=== PATIENT | female | born 1970 | race Caucasian/White ===

== ENCOUNTER 2018-10-07 09:02 | Day surgery (SDC) | payer BC ==
--- NOTE | 2018-10-07 06:52 | History and Physical - Ferro ---
CHIEF COMPLAINT/HISTORY OF CHIEF COMPLAINT: This patient presents with a history of intractable lumbar radiculopathy. Due to the failure of all therapies, a spinal cord stimulator trial was conducted on 09/03/18 with 75-85% pain control. Due to failure of therapies and the success of the trial, the patient presents today for implantation of a permanent system. PAST MEDICAL HISTORY: Chronic obstructive pulmonary disease, hypothyroidism, and cardiac arrhythmia. PAST SURGICAL HISTORY: Shoulder surgery, hysterectomy, and lung surgery. EMPLOYMENT STATUS: She works full-time. MEDICATIONS ON ADMISSION: List to be provided. ALLERGIES: ADHESIVES. FAMILY/PSYCHOSOCIAL HISTORY: Social history - Caffeine. Family history - Coronary artery disease, cancer, and cerebrovascular disease. SYSTEMS REVIEW: The patient is appropriate in no acute distress. The remainder of the systems review is positive for dentures, headaches, breathing difficulties, irregular heartbeat, degenerative arthritis, fibromyalgia, and difficulty sleeping. PHYSICAL EXAMINATION: Height is 5'2", weight is 110. No vital signs. HEENT: Within normal limits. LUNGS: Clear. HEART: Rapid and regular. ABDOMEN: Nontender. MUSCULOSKELETAL: Examination of the musculoskeletal system shows diffuse tenderness throughout the lumbar spine. Range of motion does produce pain mostly into the right leg. There are mild motor and sensory abnormalities to the right leg. Ambulation - No assistive device is utilized. NEUROLOGIC: Cranial nerves are intact. IMPRESSION: LUMBAR RADICULOPATHY, ICD-10 CODE M54.16 AND M54.17. PLAN: The primary pattern is back and leg, trial gave 75-85% pain control, other therapies failed. She is here for a permanent implant based upon the success of the trial and the failure of other therapies. The procedure will be considered outpatient although an overnight stay will be evaluated. JOB NUMBER: [id number] [facility]
[~2018-10-07 09:02] MED LIST: ACETAMINOPHEN 1,000 MG/100 ML BTL IV ONE; CEFAZOLIN 2 Gram 2 GM/50 ML BAG IVPB ONE; FAMOTIDINE 20MG TABLET PO ONE; MECLIZINE 25 MG TABLET PO ONE; METOCLOPRAMIDE 10 MG TABLET PO ONE
[2018-10-07] MEDS ORDERED: BUPIVACAINE 0.5% W/EPI MPF 30 ML VIAL IVP ONE (09:03)
[2018-10-07] MEDS ORDERED: FLUMAZENIL 1MG/10ML VIAL IV ONE (09:03)
[2018-10-07] MEDS ORDERED: PROPOFOL 10 MG/ML VIAL IV ONE (09:03)
[2018-10-07] MEDS ORDERED: FENTANYL PF 100MCG/2ML VIAL IV ONE (09:03)
[2018-10-07] MEDS ORDERED: HYDROCODONE/APAP 7.5/325MG TABLET PO ONE (09:03)
[2018-10-07] MEDS ORDERED: LIDOCAINE 2% MDV (20MG/ML) 20ML VIAL IV ONE (09:03)
[2018-10-07] MEDS ORDERED: EPHEDRINE SULFATE 50 MG/ML ML IV ONE (09:03)
[2018-10-07] MEDS ORDERED: LIDOCAINE 1% W/EPI 1:200,000 MPF 30ML SQ ONE (09:03)
[2018-10-07] MEDS ORDERED: CEFAZOLIN 1G VIAL IM ONE (09:03)
[2018-10-07] MEDS ORDERED: MIDAZOLAM HCL 2MG/2ML VIAL IV ONE (09:03)
--- NOTE | 2018-10-08 15:15 | RADIOLOGY REPORT ---
EXAM: THORACIC SPINE HISTORY: STIMULATOR PLACEMENT. TECHNIQUE: A single portable AP view of the thoracic spine was performed. Comparison: None. FINDINGS: Stimulator lead tips are at the T7 level. IMPRESSION: STIMULATOR LEAD TIPS ARE AT THE T7 LEVEL. JOB NUMBER: [id number] MTDD
--- NOTE | 2018-10-10 19:46 | Operative Note ---
DATE OF SURGERY: 10/07/2018 PREOPERATIVE DIAGNOSIS: LUMBAR RADICULOPATHY, ICD-10 CODE = M54.16 AND M54.17. SURGERY: 1. FLUOROSCOPIC-GUIDED EPIDURAL ACCESS LEFT T12-L1, PLACEMENT OF SPINAL CORD STIMULATOR LEAD 1, A [employer] INFINION 16 WITH 6 ELECTRODES POSITIONED LEFT T6. 2. FLUOROSCOPIC-GUIDED EPIDURAL ACCESS LEFT L1-2, PLACEMENT OF SPINAL CORD STIMULATOR LEAD 2, A [employer] INFINION 16 WITH 6 ELECTRODES POSITIONED RIGHT T6. 3. COMPLEX PROGRAMMING OF LEAD 1 OVER 20 MINUTES FOLLOWED BY COMPLEX PROGRAMMING OF LEAD 2 OVER 20 MINUTES. 4. INCISION, SUBCUTANEOUS DISSECTION, AND ANCHORING OF LEAD 1 AND LEAD 2 TO SUPRASPINOUS FASCIA WITH A [employer] LOCKING ANCHOR. 5. INCISION, SUBCUTANEOUS DISSECTION, AND CREATION OF SUBCUTANEOUS POUCH AT LEFT FLANK FOR PLACEMENT OF GENERATOR IDENTIFIED A [employer] SCIENTIFIC PROGRAMMABLE, RECHARGEABLE WAVEWRITER. 6. TUNNELING BETWEEN POUCHES, PLACEMENT OF EXTERNAL PORTION OF LEAD 1 AND LEAD 2 INTO GENERATOR POUCH, EACH LEAD INTERFACED WITH THE GENERATOR. 7. CLOSURE OF INCISIONS USING STRATAFIX SUTURE, #2-0 FASCIA AND #3-0 SKIN. DERMABOND CLOSURE. 8. COMPLEX RECOVERY ROOM PROGRAMMING INTERNAL GENERATOR HOME USE, TWO STIMULATORS, 20 MINUTES. SURGEON: SHILOH OROSCO D.O. ANESTHESIA: LOCAL SEDATION. ANESTHESIA PROVIDER: KAUSHAL GARVEY CRNA. INDICATIONS: This patient presents with a history of intractable lumbar radiculopathy. Due to the failure of all therapy and the success of a stimulator trial, the patient presents today for implantation of a permanent system. SURGERY: Intravenous line, vital sign monitoring, IV sedation by Anesthesia, patient positioned prone, sterile prep, sterile technique. Imaging for guidance and local for infiltration. The epidural interspace left of the midline at 12-1 and 1-2 were marked and infiltrated. Using standard curved access Epimed needles with [id number], the space was accessed. At 12-1, spinal cord stimulator lead 1, a [employer] Infinion 16 with 6 electrodes was positioned left of midline, upper electrode , T6. With the access at 1-2, same technique, similar needle, spinal cord stimulator lead 2, a [employer] Infinion 16 with 6 electrodes was positioned right at T6. Complex programming of lead 1 over 20 minutes followed by complex programming of lead 2 over 20 minutes resulting in a complete pattern of stimulation across the back and into the leg. Patient indicating we had all the areas of the pain. She was given the option to implant, continue to program, or remove. She opted to implant. Questions were repeated with the same response. She was then re-sedated. The skin above and below the needles was infiltrated, incision made, and subcutaneous dissection was conducted to the supraspinous fascia. The needles were removed and then each lead was anchored to the supraspinous fascia with a [employer] locking anchor and nonabsorbable suture. At the left flank, a site picked by the patient for the generator, skin infiltrated, incision made and subcutaneous dissection was conducted to form a pouch of suitable size and depth for the generator, a [employer] programmable, rechargeable WaveWriter. A tunneling tool was used to extend the leads into the generator pouch and then each lead was interfaced with the generator. Antibiotic irrigation and Bovie for hemostasis. With the generator and the leads in their respective pouches. both incisions were closed using STRATAFIX suture, #2-0 fascia and #3-0 skin. Dermabond closure approximating the edges of both wounds. The patient was transported to the Recovery Room stable. No side effects from the procedure or the sedation. When fully awake and alert, complex programming was then performed of the generator in the Recovery Room, over 20 minutes, reestablishing stimulation and pain control to all the appropriate areas. She was instructed on the use of the system, provided with information on error messaging and then prepared for discharge. DISCHARGE INSTRUCTIONS: 1. The Dermabond will allow showering but she cannot sit in water, no tubs. 2. She will start the antibiotic, Levaquin, 500 mg once a day for 14 days. 3. The will be called by the office in the next 24 to 48 hours to set up a time in 7 to 10 days for us to evaluate the sites. Until then, she is to keep her activities low. 4. She has work issues. She will need restrictions once she returns to work. We have discussed keeping her off work for the next 2 to 3 weeks and then returning with restrictions. She will advise us. All other instructions provided , numbers to contact if problems given. She was then discharged. cc: Primary JOB NUMBER: [id number] [facility]
== END 2018-10-07 13:10 | disposition home or self-care (01) ==
LOC: SUR 09:02
PROVIDERS: ATTEND Pain Medicine Interventional Pain Medicine
DX: M54.16 Radiculopathy, lumbar region (principal); M54.17 Radiculopathy, lumbosacral region; M06.9 Rheumatoid arthritis, unspecified; G62.9 Polyneuropathy, unspecified; E05.00 Thyrotoxicosis with diffuse goiter without thyrotoxic crisis or storm
CPT/HCPCS: 63650; 63685; 01936; 95972; 72020; J3010; J0690; C1820; C1883

== ENCOUNTER 2018-12-14 12:09 | Day surgery (SDC) | payer BC ==
[2018-12-14] MEDS ORDERED: PROPOFOL 10 MG/ML VIAL IV ONE (12:10)
[2018-12-14] MEDS ORDERED: LIDOCAINE 2% MDV (20MG/ML) 20ML VIAL IV ONE (12:10)
--- NOTE | 2018-12-14 15:11 | Operative Note ---
DATE OF SURGERY: 12/14/2018 OPERATION: COLONOSCOPY to the cecum with cold snare polypectomy x4. INDICATION: Colorectal cancer screening. The patient denies any lower GI concerns. ANESTHESIA: Intravenous sedation was administered by the department of anesthesiology and included Diprivan titrated to effect. PROCEDURE: Following informed consent from this alert individual including a discussion of the risks and benefits of the procedure and an opportunity for the patient to ask questions, the patient was in the left lateral decubitus position. A digital rectal examination was performed. No abnormalities were noted. Following this, the Olympus [id number] video colonoscope was inserted into the rectum without resistance. The rectal mucosa had a normal appearance with normal folds and distensibility. The colonoscope was advanced up through the bowel to the level of the cecum without much difficulty. Sigmoid diverticulosis was apparent. There were also 2 small polyp noted initially in the sigmoid colon which were traversed, to be removed on withdrawal. The cecum was identified by noting the appendiceal orifice and ileocecal valve. The colon preparation overall was good. From the base of the cecum, the colonoscope was slowly withdrawn. There were 2 ascending colon polyps measuring 5 mm in size. Each was removed with cold snare polypectomy and the polyp was suctioned through the colonoscope into a collection trap. Again, in the sigmoid colon there were scattered diverticula noted. There were also 2 polyps noted previously, one measuring 5-6 mm in size and the smaller one perhaps 3-4 mm in size. Each was removed with cold snare polypectomy and the polyps were suctioned into a collection trap. The endoscope was then withdrawn back into the rectum where retroflexion accomplished following air insufflation failed to demonstrate any additional changes. The instrument was straightened and removed. The patient tolerated the procedure well and was returned to the recovery area in stable condition. IMPRESSION: 1. Two 5 mm ascending colon polyps removed with cold snare polypectomy. 2. Two sigmoid colon polyps measuring 3-5 mm in size removed with cold snare polypectomy. 3. Sigmoid diverticulosis. RECOMMENDATIONS: The patient was advised she should receive a copy of her pathology report at home in the next 2-3 weeks. If not, she was asked to call my office to review the results of testing today. Further recommendations will be forthcoming pending those results. Followup will also be with Dr. An. As always, thank you for allowing me to participate in the care of your patient. CC: Lele An MD [facility]
== END 2018-12-14 14:45 | disposition home or self-care (01) ==
LOC: HOP 12:09
PROVIDERS: ATTEND Internal Medicine Gastroenterology
DX: Z12.11 Encounter for screening for malignant neoplasm of colon (principal); D12.2 Benign neoplasm of ascending colon; D12.5 Benign neoplasm of sigmoid colon; K57.30 Diverticulosis of large intestine without perforation or abscess without bleeding; G62.9 Polyneuropathy, unspecified; D70.9 Neutropenia, unspecified; M06.9 Rheumatoid arthritis, unspecified; J44.9 Chronic obstructive pulmonary disease, unspecified; J45.909 Unspecified asthma, uncomplicated
CPT/HCPCS: 76700

== ENCOUNTER 2019-04-12 23:00 | Emergency (ER) | payer BC ==
[2019-04-12] MEDS ORDERED: 0.9 % SODIUM CHLORIDE 1,000 ML BAG IV ONE (23:12)
[2019-04-12] MEDS ORDERED: LORAZEPAM 2 MG/ML VIAL IV ONE (23:12)
[2019-04-12] MEDS ORDERED: ONDANSETRON HCL IV 4 MG/2 ML VIAL IVP ONE (23:14)
--- NOTE | 2019-04-12 23:19 | Emergency Department Record ---
History of Present Illness - General Stated Complaint: muscle weakness and spasms Time Seen by Provider: 04/12/19 23:03 Source: Patient Mode of Arrival: Ambulatory Limitations: No limitations - History of Present Illness Initial comments: 48 yo female presents from work at [employer]. She developed weakness all over her body. She felt like it was difficult to climb steps. She has muscle aches all over her body. Her hands and feet began cramping severely. No headache. No syncope. She reports she felt like she "was drunk" but she does not drink. She hurts all over her body including her chest. Her pain there is similar to the pain all over her body. She has nausea and reports she vomited. She ate but it did not help the symptoms. Her hands and right foot are currently cramping during the interview. She has COPD but states today has been a good day. No cough or shortness of breath. NO swelling. No rash. NO fever. No other recent changes in her health. Dr An is her doctor. -: Hour(s) Location: Upper extremity, Lower extremity, Abdomen, Back, Chest Radiation: Other (All over her body) Quality: Other (cramps and aches) Consistency: Constant Improves with: None Worsens with: Movement, Other (cramps occur with walking) Associated Symptoms: Denies other symptoms Treatments Prior to Arrival: None - Scott Coma Scale Eye Response: (4) Open spontaneously Motor Response: (6) Obeys commands Verbal Response: (5) Oriented Scott Total: 15 - Related Data Home Medications Medication Instructions Recorded Confirmed Last Taken Hydrocodone/Acetaminophen 1 tab PO Q6H PRN 04/12/19 04/12/19 Unknown [Hydrocodone/Acetaminophen 7.5mg/325mg] Allergies Allergy/AdvReac Type Severity Reaction Status Date / Time adhesive tape Allergy Intermediate BLISTERS Verified 04/13/19 05:48 codeine AdvReac Intermediate VOMITING Verified 04/13/19 05:48 Travel Screening - Travel/Exposure Within Last 30 Days Have you traveled within the last 30 days?: No Review of Systems Constitutional: Reports: Weakness. Denies: Chills, Fever, Malaise, Night sweats Eyes: Denies: Eye discharge, Eye pain, Photophobia, Vision change ENT: Denies: Congestion, Dental pain, Ear pain, Epistaxis, Throat pain Respiratory: Denies: Cough, Dyspnea, Hemoptysis, Stridor, Wheezes Cardiovascular: Reports: Chest pain. Denies: Arrhythmia, Dyspnea on exertion, Edema, Palpitations, Syncope Endocrine: Reports: Fatigue. Denies: Polydipsia, Polyuria Gastrointestinal: Reports: Nausea, Vomiting. Denies: Abdominal pain, Constipation, Diarrhea, Hematemesis, Hematochezia, Melena Genitourinary: Denies: Dysuria, Urgency Musculoskeletal: Reports: Myalgia. Denies: Arthralgia, Back pain, Joint swelling, Neck pain Skin: Denies: Bruising, Change in color, Rash Neurological: Denies: Abnormal gait, Confusion, Headache, Numbness, Paresthesias, Seizure, Tingling, Tremors, Vertigo, Weakness Psychiatric: Denies: Anxiety Hematological/Lymphatic: Denies: Easy bleeding, Easy bruising Past Medical History - SOCIAL HISTORY Smoking Status: Current some day smoker - RESPIRATORY Hx Respiratory Disorders: Yes Hx COPD: Yes (USES INHALER DAILY) Comment:: spontaneous pneumo on left/wedge rsxn left benign area 2014 - CARDIOVASCULAR Hx Cardio Disorders: Yes Hx Chest Pain: No (DENIES) Hx Hypotension: Yes Hx Palpitations: Yes (due to graves disease) - NEURO Hx Neuro Disorders: Yes Hx TIA: Yes (possibly yrs ago) - GI Hx GI Disorders: No - Hx Genitourinary Disorders: No Comment:: s/p hyst - ENDOCRINE Hx Endocrine Disorders: Yes Hx Thyroid Disease: Yes (graves disease) - MUSCULOSKELETAL Hx Musculoskeletal Disorders: Yes Hx Arthritis: Yes (RA) Hx Fibromyalgia: Yes - PSYCH Hx Psych Problems: Yes Hx Anxiety: Yes Hx Depression: Yes - HEMATOLOGY/ONCOLOGY Hx Hematology/Oncology Disorders: Yes Hx Anemia: Yes Hx Blood Disorders: Yes (neutropenia nuepogen wkly) Comment:: bone marrow test 2015, neutropenic unknown etiology Family Medical History Hx Cancer: Father, Mother, Grandparents Hx Heart Disease: Father, Mother, Grandparents Hx Stroke: Grandparents Physical Exam - General General Appearance: Alert, Oriented x3, Cooperative, No acute distress, Other (Currently holding her cramping foot) Limitations: No limitations - Head Head exam: Atraumatic, Normocephalic, Normal inspection - Eye Eye exam: Normal appearance, PERRL. negative: Conjunctival injection, Scleral icterus - ENT ENT exam: Normal exam, Mucous membranes moist Ear exam: Normal external inspection Nasal Exam: Normal inspection Mouth exam: Normal external inspection Teeth exam: Normal inspection Throat exam: Normal inspection - Neck Neck exam: Normal inspection, Full ROM. negative: Lymphadenopathy, Meningismus, Tenderness - Respiratory Respiratory exam: Normal lung sounds bilaterally, Chest wall tenderness (tender on palpation). negative: Accessory muscle use, Decreased breath sounds, Prolonged expiratory, Respiratory distress, Rhonchi, Stridor, Wheezes - Cardiovascular Cardiovascular Exam: Regular rate, Normal rhythm, Normal heart sounds. negative: Diastolic murmur, Irregular rhythm, Systolic murmur, Tachycardia Peripheral Pulses: 2+: Radial (R), Radial (L) - GI/Abdominal GI/Abdominal exam: Soft. negative: Distended, Guarding, Tenderness - Rectal Rectal exam: Deferred - exam: Deferred - Extremities Extremities exam: Normal inspection, Full ROM, Tenderness (diffuse muscle tenderness especially in her feet). negative: Normal capillary refill - Back Back exam: Reports: CVA tenderness (R), CVA tenderness (L), Full ROM - Neurological Neurological exam: Alert, Normal gait, Oriented X3. negative: Altered - Psychiatric Psychiatric exam: Anxious (anxious holding her cramping right foot) - Skin Skin exam: Dry, Intact, Normal color, Warm Course Vital Signs 04/12/19 23:03 Temperature 98.6 F Pulse Rate [ 105 H Pulse Ox Probe] Respiratory 24 Rate Blood Pressure 124/91 [Left Arm] Pulse Ox 97 - Reevaluation(s) Reevaluation #1: The patient was seen and examined. She is afebrile, mildly anxious due to right foot cramping at this time Atypical symptoms of pain all over with hand and feet cramps No signs of infection. No significant physical examination findings except tender of muscles diffusely 04/12/19 23:33 EKG #1: 23:21 Rate: 94 Rhythm: sinus [place]: normal Intervals: normal ST segments: no acute changes Prior: 04/13/19 00:00 The CBC is normal The CMP is normal The UDS positive for opiates CK is normal Trop is normal 04/13/19 00:11 The patient is doing much better. Cramps in foot seem better. She is relaxed and resting. 04/13/19 00:31 After the Ativan the patient reports her body finally has relaxed. She is a little sleepy and BP lower so will continue to monitor and finish the IVF. She has no cramps and her body pain is gone. No other complaints currently. 04/13/19 02:07 The patient remains relaxed sleeping. Easily awakens with no complaints. Plan for 2nd set of cardiac enzymes at 4 hours. 04/13/19 03:51 The patient was up to the restroom. Steady. No cramps. BP 115/55. No dizziness or lightheadedness. 04/13/19 04:24 The repeat Troponin is normal. The symptoms are very atypical for ACS. 04/13/19 04:28 The patient was informed of the repeat normal troponin No return of the muscle cramps while waiting. 04/13/19 05:57 The patient woke up, up to the restroom and still feels good. BP 112/76. She has not had any return or symptoms. It has been over 6 hours since medications and she feels all effects are gone. She is alert, conversational, at baseline and ready for DC. We discussed a short steroid taper of 20,10,5 and close follow up with her PCP or return if any symptoms return Medical Decision Making - Lab Data Result diagrams: 04/12/19 23:24 04/12/19 23:24 Disposition Disposition: Discharge Clinical Impression: Myalgia, Weakness Disposition: Home, Self-Care Condition: (1) Good Instructions: Weakness (ED), Musculoskeletal Pain (ED) Additional Instructions: Call your doctor for the next available follow up appointment Review this ER visit and the tests performed with your family doctor Return to the ER for a recheck if worse, any new concerns or questions Forms: Patient Portal Access Time of Disposition: 04:26 Quality - Quality Measures Quality Measures: N/A - Blood Pressure Screening Does Patient Have Any of the Following: No Blood Pressure Classification: Normal BP Reading Systolic Measurement: 112 Diastolic Measurement: 76 Screening for High Blood Pressure: < Normal BP, F/U Not Required > [[id number]]
[2019-04-12 23:32] LABS: ABSOLUTE NEUTROPHIL COUNT 4.88; BASO % 0.3 % (0-6); GRAN % 65.2 % (47-80); HEMATOCRIT 43.7 % (35.0-47.0); HEMOGLOBIN 14.8 gm/dl (11.6-16.0); MEAN CELL VOLUME 97.1 fl (81-97); MEAN CORPUSCULAR HEMOGLOBIN 32.9 pg (27-33); MEAN CORPUSCULAR HGB CONC 33.9 g/dl (32-36); MEAN PLATELET VOLUME 9.8 fl (7.4-10.4); MONO % 13.5 % (0-9); PLATELET COUNT 198 K/uL (130-400); RED CELL DISTRIBUTION WIDTH 13.5 % (11.5-14.5); WHITE BLOOD COUNT W/O DIFF 7.5 K/uL (4.2-12.2)
[2019-04-12 23:43] LABS: BILIRUBIN,TOTAL < 0.20 mg/dL (0.2-1.0); BLOOD UREA NITROGEN 14 mg/dL (6-20); EST GLOMERULAR FILTRATION RATE > 60 mL/min; TOTAL PROTEIN 6.6 g/dL (6.6-8.7)
[2019-04-12 23:44] LABS: AMPHETAMINE SCREEN URINE NOT DETECTED; BARBITURATE SCREEN URINE NOT DETECTED; BENZODIAZEPINE SCREEN URINE NOT DETECTED; COCAINE SCREEN URINE NOT DETECTED; METHADONE SCREEN URINE NOT DETECTED; METHAMPHETAMINE SCREEN NOT DETECTED; OPIATE SCREEN URINE DETECTED; OXYCODONE SCREEN URINE NOT DETECTED; PHENCYCLIDINE SCREEN URINE NOT DETECTED; PROPOXYPHENE SCREEN URINE NOT DETECTED; THC SCREEN URINE NOT DETECTED; TRICYCLIC ANTIDEPRESSANT SCRN NOT DETECTED
[2019-04-12 23:45] LABS: GLUCOSE,RANDOM 112 mg/dL (74-109)
[2019-04-12 23:48] LABS: ALB/GLOB RATIO 1.9 (1.1-1.8); ALBUMIN 4.3 g/dL (4.0-5.0); ALKALINE PHOSPHATASE 84 U/L (35-104); ALT/SGPT 5 U/L (<33); AST/SGOT 14 U/L (10.0-35.0); CREATINE PHOSPHOKINASE 32 U/L (26-192)
[2019-04-13] LABS: THYROID STIMULATING HORMONE 1.26 uIU/mL (0.270-4.20)
[2019-04-13] MEDS ORDERED: 0.9 % SODIUM CHLORIDE 1000ML 1,000 ML IV ONE (01:10)
[2019-04-13] MEDS ORDERED: DEXAMETHASONE 4 MG/ML 1ML VIAL IVP ONE (03:13)
== END 2019-04-13 06:05 | disposition home or self-care (01) ==
LOC: ER 23:00
DX: M79.10 Myalgia, unspecified site (principal); E07.9 Disorder of thyroid, unspecified; M06.9 Rheumatoid arthritis, unspecified; M79.7 Fibromyalgia
CPT/HCPCS: 80053; 80305; 80320; 82550; 84443; 84484; 85025; 93005; 93010; 96361; 96374; 96375; 99284; J2405; J7030

== ENCOUNTER 2019-04-14 06:45 | Day surgery (SDC) | payer BC ==
[~2019-04-14 06:45] MED LIST changes: -ACETAMINOPHEN 1,000 MG/100 ML BTL IV ONE; +ACETAMINOPHEN 1,000 MG/100 ML BTL IVPB ONE
[2019-04-14] MEDS ORDERED: LIDOCAINE 2% MDV (20MG/ML) 20ML VIAL IV ONE (06:46)
[2019-04-14] MEDS ORDERED: FENTANYL PF 100MCG/2ML VIAL IV ONE (06:46)
[2019-04-14] MEDS ORDERED: PROPOFOL 10 MG/ML VIAL IV ONE (06:46)
[2019-04-14] MEDS ORDERED: MIDAZOLAM HCL 2MG/2ML VIAL IV ONE (06:46)
--- NOTE | 2019-04-14 06:51 | History and Physical - Ferro ---
CHIEF COMPLAINT/HISTORY OF CHIEF COMPLAINT: This patient who had a spinal cord stimulator implant done on 10/07/18 appeared to be doing quite well although over time she began developing a significant pain pattern at the mid back insertion site. Examination of the area at first showed a patient who is somewhat thin, body weight predicted and indicated at approximately 105 pounds. Although the incision for the midline placement of the spinal cord stimulator leads times two were intact the strain relief which is an appropriate measure to help prevent the lead from being pulled during activities was quite prominent. The anchor for the two leads were also both quite prominent. It was obvious by palpation that the area is quite tender. Although multiple efforts were attempted at a conservative level to desensitize the area we were unsuccessful. At that point and after careful evaluation, it was decided that there were two options, one was to remove the system. The patient felt adversely to this since the device continued to be maintaining adequate and significant pain relief. The other was to revise the system. We suggested that we could remove the two leads, replace with shorter leads which would remove the need for the multiple coils at the mid back as well as at the posterior gluteal margin which was also tender. We would remove the leads and replace the anchors with locking anchors which are quite large and cumbersome and simply anchor the two leads through suture. The attempt would be to reduce the bulk and the size at the incisional and placement site. She preferred the second option to revise, remove and replace than complete removal. PAST MEDICAL HISTORY: Chronic obstructive pulmonary disease, hypothyroidism, and cardiac arrhythmia. PAST SURGICAL HISTORY: Shoulder surgery, hysterectomy, and pulmonary surgery. EMPLOYMENT STATUS: Works line server. MEDICATIONS ON ADMISSION: List to be provided. ALLERGIES: ADHESIVES. FAMILY/PSYCHOSOCIAL HISTORY: Social history - Caffeine. Family history - Coronary artery disease, cancer, and cerebrovascular disease. SYSTEMS REVIEW: The patient is appropriate in no acute distress. The remainder of the systems review is positive for dentures, headaches, breathing difficulties, irregular heartbeat, degenerative arthritis, and fibromyalgia. PHYSICAL EXAMINATION: Height is 5'2", weight is 105. No vital signs. HEENT: Within normal limits. LUNGS: Clear. HEART: Rapid and regular. ABDOMEN: Nontender. MUSCULOSKELETAL: Examination of the musculoskeletal system shows the midline incisional site as per above. Generator pouch is at the left posterior gluteal margin - flank is also identified and tender. There are no breakdowns at the incisional sites. Lower extremity functionality intact. The primary pain pattern lower extremity confirmed. NEUROLOGIC: Cranial nerves are intact. IMPRESSION: 1. LUMBAR RADICULOPATHY, ICD-10 CODE M54.16 AND M54.17 2. IMPLANTED SPINAL CORD STIMULATOR AND INTERNAL GENERATOR. PLAN: As per the previous discussion we will remove and replace the system. We will consider this outpatient although an overnight stay will be evaluated. JOB NUMBER: [id number] MTDD
[2019-04-14] MEDS ORDERED: RINGERS SOLUTION,LACTATED 1,000 ML IV ONE (07:46)
[2019-04-14] MEDS ORDERED: BUPIVACAINE 0.5% W/EPI MPF 30 ML VIAL SQ ONE (10:48)
[2019-04-14] MEDS ORDERED: LIDOCAINE 1% W/EPI 1:100,000 MDV 20 ML VIAL SQ ONE (10:48)
[2019-04-14] MEDS ORDERED: HYDROMORPHONE HCL 2 MG/ML VIAL IM PRN ×2 (11:57→13:00)
[2019-04-14] MEDS ORDERED: HYDROCODONE/APAP 7.5/325MG TABLET PO PRN ×3 (11:57→13:00)
[2019-04-14] MEDS ORDERED: OXYCODONE/APAP 10MG-325MG TABLET PO PRN ×4 (11:57→13:00)
[2019-04-14] MEDS ORDERED: ACETAMINOPHEN 325 MG TAB PO PRN ×4 (11:57→13:00)
[2019-04-14] MEDS ORDERED: CEFAZOLIN 2 Gram 2 GM/50 ML BAG IVPB SCH (12:00)
[2019-04-14] MEDS ORDERED: ALBUTEROL HFA 8 GM INHALER INH PRN (12:54)
[2019-04-14] MEDS ORDERED: TEMAZEPAM 15 MG CAPSULE PO PRN ×2 (13:00)
[2019-04-14] MEDS ORDERED: DIPHENHYDRAMINE HCL 25 MG CAPSULE PO PRN ×2 (13:00)
[2019-04-14] MEDS ORDERED: AL HYDROX/MAG HYDROX 30ML UD PO PRN (13:00)
[2019-04-14] MEDS ORDERED: SENNOSIDES/DOCUSATE SODIUM UD CAPSULE PO PRN ×2 (13:00)
[2019-04-14] MEDS ORDERED: DIPHENHYDRAMINE HCL 50 MG/ML VIAL IVP PRN ×2 (13:00)
[2019-04-14] MEDS ORDERED: METOCLOPRAMIDE HCL 10 MG/2 ML VIAL IVP PRN (13:00)
[2019-04-14] MEDS ORDERED: METOCLOPRAMIDE 10 MG TABLET PO PRN (13:00)
[2019-04-14] MEDS: HYDROCODONE/APAP 7.5/325MG TABLET PO PRN ×3 (13:47→22:22)
[2019-04-14] MEDS: HYDROMORPHONE HCL 2 MG/ML VIAL IM PRN ×2 (15:49→20:12)
[2019-04-14] MEDS: PREGABALIN (LYRICA) 100MG CAPSULE PO SCH ×2 (16:56→21:24)
[2019-04-14] MEDS: CEFAZOLIN 2 Gram 2 GM/50 ML BAG IVPB SCH (16:58)
[2019-04-14] MEDS ORDERED: 0.9 % SODIUM CHLORIDE 10ML SYR IVP SCH (22:00)
[2019-04-15] MEDS: HYDROMORPHONE HCL 2 MG/ML VIAL IM PRN ×2 (00:22→05:27)
[2019-04-15] MEDS: HYDROCODONE/APAP 7.5/325MG TABLET PO PRN ×2 (02:04→07:50)
[2019-04-15] MEDS: CEFAZOLIN 2 Gram 2 GM/50 ML BAG IVPB SCH ×2 (02:06→08:55)
--- NOTE | 2019-04-15 10:33 | RADIOLOGY REPORT ---
EXAM: THORACOLUMBAR SPINE, SINGLE VIEW HISTORY: SPINAL CORD STIMULATOR REVISION. CHECK LEAD PLACEMENT. TECHNIQUE: A single view of the thoracolumbar spine was obtained. Comparison: 10/07/18. FINDINGS: Spinal cord stimulator leads project over the T7 level. Generator device partially visualized within the left lower quadrant. Cholecystectomy clips are seen. IMPRESSION: SPINAL CORD STIMULATOR LEADS ABOVE. JOB NUMBER: [id number] MTDD
--- NOTE | 2019-04-16 10:40 | Operative Note ---
DATE OF SURGERY: 04/14/2019 PREOPERATIVE DIAGNOSES: 1. Lumbar radiculopathy, ICD10 code M54.16 and M54.17. 2. Spinal cord stimulator internal generator painful, nonfunctional. OPERATION: 1. Fluoroscopic-guided incision, subcutaneous dissection, and removal of 2 implanted spinal cord stimulators. 2. Incision, subcutaneous dissection, and removal of internal pulse generator left posterior gluteal margin. 3. Fluoroscopic-guided epidural access T12-L1, placement of spinal cord stimulator lead 1, a [employer] Infinion 16, 6 electrodes left T7. 4. Fluoroscopic-guided epidural access left L1-2, placement of spinal cord stimulator lead 2, a [employer] Infinion 16, 6 electrodes positioned right T7. 5. Revision of subcutaneous pouch left posterior gluteal margin for placement of new generator, [employer] programmable rechargeable WaveWriter. 6. Tunneling between midline pouch and left generator pouch. Placement of each lead in generator pouch, each lead interfaced with generator. 7. Placement of generator into pouch securing to posterior fascia after revision to extend generator inferior 1/2 generator width securing to posterior fascia with nonabsorbable suture. 8. Placement of leads into pouch. Closure of both incisions using Stratafix suture 2-0 fascia, 3-0 skin, and Dermabond closure. A complex recovery room programming internal generator recovery room 20 minutes. SURGEON: Kevon Peck, ANESTHESIA: Local with sedation. ANESTHESIA PROVIDER: Shirley Epps INDICATION: This patient with a history of intractable lumbar radiculopathy has a 2-spinal cord stimulator internal generator system by [employer]. Although stimulation patterns appear to be doing quite well, the patient's body weight estimated at 100-105 pounds with very little subcutaneous tissue began having pain at the insertion site for the 2 leads midline as well as the left generator pouch posterior gluteal margin. Examination in the office setting showed the 2-lead strained relief loop and the anchors, which were a locking anchor used to secure the leads down, were protruding appreciably causing redness and irritation of the skin as well as obvious pain every time the patient sat down and leaned against a firm surface. Attempts to desensitize were unsuccessful. At that point, she was given the option to remove or replace. The idea or the concept of replacing would be to replace the leads, which are standard legs, with a shorter length and not use standard anchors but rather suture to secure the leads down. The generator pouch would be moved inferiorly approximately 1/2 generator length moving it away from the beltline. PROCEDURE: Intravenous line, vital sign monitoring, IV sedation. Prepped and draped with sterile technique. Under imaging, the incision for the leads was infiltrated, incision made, subcutaneous dissection was conducted to the anchors. The anchor and the suture removed intact. The leads were removed intact. Two separate standard epidural needles with loss of resistance, one at 12-1 and the other at 1-2 were used to gain entry into the epidural space. At 12-1, spinal cord stimulator lead 1, a [employer] Infinion 16, 6 electrodes was advanced and positioned left at T7. The access at 1-2, spinal cord stimulator lead 2, [employer] Infinion 16, 6 electrodes was positioned right at T7. Complex programming of lead 1 over 20 minutes followed by complex programming of lead 2 over 20 minutes resulted in complete pattern stimulation across the back and into the legs. Patient indicating we had all the areas. She was given the option to implant and continue to program or remove. She opted to implant. The question was repeated with the same response. She was then re-sedated. The needles were removed and then each of the 2 leads was anchored to the supraspinous fascia using Ethibond suture. No anchor, only suture at 3 points each lead. The left posterior generator pouch was then deepened, widened, and extended inferiorly approximately 1/2 to 1 generator width taking the pouch down below the beltline. Antibiotic irrigation and Bovie for hemostasis. A tunneling tool was used to carry the leads into the generator pouch, and then each lead was interfaced with a new [employer] programmable, rechargeable generator. The generator was placed into the pouch, secured to the fascia keeping it down lower in position with an Ethibond suture. Both the incisions were then closed using Stratafix suture, 2-0 fascia, and 3-0 skin. She was transported to recovery room stable. She was monitored and then prepared for discharge. DISCHARGE INSTRUCTIONS: 1. The sites will remain clean and dry. No showering or bathing in any way that would disrupt dressings. She can shower but not sit in water. 2. Standard medications resumed including the antibiotic Levaquin 500 mg once a day for 14 days. 3. The patient will be seen in the office in the next 2-3 days. She is requesting to return to work with restrictions. We will evaluate the sites and ensure the integrity of the Dermabond dressing. She will be returned to work with restrictions limiting bend, lift, push, pull. No prolonged sitting, no prolonged standing. She has already arranged this with her employer. FRANCISCO
== END 2019-04-15 09:45 | disposition home or self-care (01) ==
LOC: SUR 06:45 → MEDSURG 11:55 → SUR 04-15 09:45
PROVIDERS: ATTEND Pain Medicine Interventional Pain Medicine
DX: M54.16 Radiculopathy, lumbar region (principal); M54.17 Radiculopathy, lumbosacral region; T85.840A Pain due to nervous system prosthetic devices, implants and grafts, initial encounter; T85.192D Other mechanical complication of implanted electronic neurostimulator of spinal cord electrode (lead), subsequent encounter; D70.9 Neutropenia, unspecified; M06.9 Rheumatoid arthritis, unspecified; J44.9 Chronic obstructive pulmonary disease, unspecified; E05.00 Thyrotoxicosis with diffuse goiter without thyrotoxic crisis or storm; Z90.2 Acquired absence of lung [part of]
CPT/HCPCS: 63650; 63685; 01936; 95972; 72020; J3010; J1170 ×2; J0690 ×2; C1820; J7120

== ENCOUNTER 2019-07-30 11:45 | Inpatient (IN) | payer BC ==
[2019-07-30 12:32] LABS: HEMATOCRIT 44.1 % (35.0-47.0); HEMOGLOBIN 14.2 gm/dl (11.6-16.0); MEAN CELL VOLUME 97.8 fl (81-97); MEAN CORPUSCULAR HEMOGLOBIN 31.5 pg (27-33); MEAN CORPUSCULAR HGB CONC 32.2 g/dl (32-36); MEAN PLATELET VOLUME 9.7 fl (7.4-10.4); PLATELET COUNT 183 K/uL (130-400); RED BLOOD COUNT 4.51 M/uL (3.80-5.40); RED CELL DISTRIBUTION WIDTH 14.4 % (11.5-14.5); WHITE BLOOD COUNT W/O DIFF 2.7 K/uL (4.2-12.2)
[2019-07-30] MEDS ORDERED: METHYLPREDNISOLONE PF 125MG/VIAL IVP ONE (12:39)
[2019-07-30] MEDS ORDERED: IPRATROPIUM/ALBUTEROL (0.5MG/3MG) NEB INH ONE (12:39)
[2019-07-30 12:47] LABS: BILIRUBIN,TOTAL < 0.20 mg/dL (0.2-1.0); BLOOD UREA NITROGEN 14 mg/dL (6-20); CREATININE 0.7 mg/dL (0.5-0.9); EST GLOMERULAR FILTRATION RATE > 60 mL/min; TOTAL PROTEIN 7.1 g/dL (6.6-8.7)
[2019-07-30 12:49] LABS: GLUCOSE,RANDOM 178 mg/dL (74-109)
[2019-07-30 12:52] LABS: ALB/GLOB RATIO 1.2 (1.1-1.8); ALBUMIN 3.9 g/dL (4.0-5.0); ALKALINE PHOSPHATASE 108 U/L (35-104); ALT/SGPT 8 U/L (<33); AST/SGOT 16 U/L (10.0-35.0)
[2019-07-30] MEDS ORDERED: LORAZEPAM 2 MG/ML VIAL IV ONE (13:06)
--- NOTE | 2019-07-30 13:59 | RADIOLOGY REPORT ---
EXAMINATION: Two View Chest Radiographs EXAM DATE: 07/30/2019 1:37 PM TECHNIQUE: PA and lateral views. 3 views. INDICATION: sob COMPARISON: 04/14/2019 ENCOUNTER: Not applicable FINDINGS: The lungs remain hyperinflated/hyperlucent consistent with underlying COPD/pulmonary emphysema. The c ardiovascular pattern appears stable. There is stable scarring/fibrosis. No effusion, pneumothorax or acute pulmonary process is seen. Nodular opacities seen projected over the anterior end of the right sixth and between the anterior ends of the left fifth and sixth ribs are consistent with nipple shad ows. IMPRESSION: COPD. Stable scarring/fibrosis. No acute findings. No significant change from 04/14/2019. Dictated by: Pieter Sandoval MD on 07/30/2019 1:55 PM. .
--- NOTE | 2019-07-30 14:03 | CT SCAN REPORT ---
EXAMINATION: CT Head without IV Contrast EXAM DATE: 07/30/2019 1:37 PM TECHNIQUE: Standard protocol CT images of the head were obtained without intravenous contrast. Elliott l and sagittal reconstructed images were created. INDICATION: weakness COMPARISON: None HAND DOMINANCE: Unknown. ENCOUNTER: Not applicable FINDINGS: 1. There is no intracranial mass, midline shift, extraaxial fluid collection or hemorrhage. 2. The ventricles, sulci and cisterns are normal. 3. There are no suspicious area of altered attenuation. 4. There is no fracture. 5. Moderate mucosal thickening of the right maxillary sinus, right sphenoid sinus, and posterior rig ht ethmoid air cell with some secretions which can be seen with the clinical diagnosis of acute sinus itis. The paranasal sinuses are clear. IMPRESSION: 1. No evidence for acute intracranial abnormality. 2. Right-sided paranasal sinus disease. Dictated by: Cosme Monsalve MD on 07/30/2019 1:59 PM. .
--- NOTE | 2019-07-30 14:26 | Emergency Department Record ---
History of Present Illness - General Chief Complaint: Altered Mental Status Stated Complaint: loss of motor function Time Seen by Provider: 07/30/19 11:57 Source: Patient, Family Mode of Arrival: Ambulatory Limitations: Altered mental status - History of Present Illness Initial Comments: pt was brought in for productive cough, she states she thinks she has pneumonia. she also c/o shakiness, weakness, difficulty walking. she has felt like this since yesterday Complaint: Altered mental status, Confusion, Weakness Onset/Timin -: Days(s) Severity: Moderate Consistency: Constant, Intermittent Context: COPD Associated Symptoms: Cough, Difficulty walking, Weakness - Scott Coma Scale Eye Response: (4) Open spontaneously Motor Response: (6) Obeys commands Verbal Response: (5) Oriented [place] Total: 15 - Symptoms of Stroke Onset of Symptoms Date: 07/29/19 Symptoms of stroke: Dizziness, Muscle Weakness - Related Data Allergies Allergy/AdvReac Type Severity Reaction Status Date / Time adhesive tape Allergy Intermediate BLISTERS Verified 07/30/19 11:59 codeine AdvReac Intermediate VOMITING Verified 07/30/19 11:59 Travel Screening - Travel/Exposure Within Last 30 Days Have you traveled within the last 30 days?: No - Travel/Exposure Within Last Year Have you traveled outside the [place] in the last year?: No - Additonal Travel Details Have you been exposed to anyone with a communicable illness?: No - Travel Symptoms Symptom Screening: None Review of Systems Reviewed: No additional complaints except as noted below Constitutional: Reports: As per HPI. Denies: Chills, Fever, Malaise, Night sweats, Weakness, Weight change Eyes: Reports: As per HPI. Denies: Eye discharge, Eye pain, Photophobia, Vision change ENT: Reports: As per HPI. Denies: Congestion, Dental pain, Ear pain, Epistaxis, Hearing loss, Throat pain Respiratory: Reports: As per HPI. Denies: Cough, Dyspnea, Hemoptysis, Stridor, Wheezes Cardiovascular: Reports: As per HPI. Denies: Arrhythmia, Chest pain, Dyspnea on exertion, Edema, Murmurs, Orthopnea, Palpitations, Paroxysmal nocturnal dyspnea, Rheumatic Fever, Syncope Endocrine: Reports: As per HPI. Denies: Fatigue, Heat or cold intolerance, Polydipsia, Polyuria Gastrointestinal: Reports: As per HPI. Denies: Abdominal pain, Constipation, Diarrhea, Hematemesis, Hematochezia, Melena, Nausea, Vomiting Genitourinary: Reports: As per HPI. Denies: Abnormal menses, Discharge, Dyspareunia, Dysuria, Frequency, Hematuria, Incontinence, Retention, Urgency Musculoskeletal: Reports: As per HPI. Denies: Arthralgia, Back pain, Gout, Joint swelling, Myalgia, Neck pain Skin: Reports: As per HPI. Denies: Bruising, Change in color, Change in hair/nails, Lesions, Pruritus, Rash Neurological: Reports: As per HPI. Denies: Abnormal gait, Confusion, Headache, Numbness, Paresthesias, Seizure, Tingling, Tremors, Vertigo, Weakness Psychiatric: Reports: As per HPI. Denies: Anxiety, Auditory hallucinations, Depression, Homicidal thoughts, Suicidal thoughts, Visual hallucinations Hematological/Lymphatic: Reports: As per HPI. Denies: Anemia, Blood Clots, Easy bleeding, Easy bruising, Swollen glands Past Medical History - SOCIAL HISTORY Smoking Status: Light tobacco smoker (<10/day) Alcohol Use: Rare Drug Use: None - RESPIRATORY Hx Respiratory Disorders: Yes Hx COPD: Yes (USES INHALER DAILY) Comment:: spontaneous pneumo on left/wedge rsxn left benign area 2009 with chest tube - CARDIOVASCULAR Hx Cardio Disorders: Yes Hx Chest Pain: No (DENIES) Hx Hypotension: Yes Hx Palpitations: Yes (due to graves disease) - NEURO Hx Neuro Disorders: Yes Hx TIA: Yes (possibly yrs ago) - GI Hx GI Disorders: No Hx Abdominal Pain: Yes Hx Nausea/Vomiting: Yes - Hx Genitourinary Disorders: No Comment:: s/p hyst - ENDOCRINE Hx Endocrine Disorders: Yes Hx Thyroid Disease: Yes (graves disease) - MUSCULOSKELETAL Hx Musculoskeletal Disorders: Yes Hx Arthritis: Yes (RA) Hx Fibromyalgia: Yes - PSYCH Hx Psych Problems: Yes Hx Anxiety: Yes Hx Depression: Yes - HEMATOLOGY/ONCOLOGY Hx Hematology/Oncology Disorders: Yes Hx Anemia: Yes Hx Blood Disorders: Yes (neutropenia nuepogen wkly) Comment:: bone marrow test 2014, neutropenic unknown etiology Family Medical History Any Significant Family History?: Yes Hx Cancer: Father, Mother, Grandparents Hx Heart Disease: Father, Mother, Grandparents Hx Stroke: Grandparents Physical Exam - General General Appearance: Alert, Oriented x3, Cooperative, Mild distress - Head Head exam: Normal inspection - Eye Eye exam: Normal appearance, PERRL, EOMI Pupils: Normal accommodation - ENT ENT exam: Normal exam, Mucous membranes dry, Normal external ear exam, Normal orophraynx, TM's normal bilaterally Ear exam: Normal external inspection. negative: External canal tenderness Nasal Exam: Normal inspection. negative: Discharge, Sinus tenderness Mouth exam: Normal external inspection, Tongue normal Teeth exam: Normal inspection. negative: Dental caries Throat exam: Normal inspection. negative: Tonsillar erythema, Tonsillar exudate - Neck Neck exam: Normal inspection, Full ROM. negative: Tenderness - Respiratory Respiratory exam: Rales. negative: Respiratory distress - Cardiovascular Cardiovascular Exam: Normal rhythm, Normal heart sounds, Tachycardia - GI/Abdominal GI/Abdominal exam: Soft, Normal bowel sounds. negative: Tenderness - Rectal Rectal exam: Deferred - exam: Deferred - Extremities Extremities exam: Normal inspection, Full ROM, Normal capillary refill. negative: Tenderness - Back Back exam: Reports: Normal inspection, Full ROM. Denies: Muscle spasm, Rash noted, Tenderness - Neurological Neurological exam: Alert, CN II-XII intact, Normal gait, Oriented X3, Other (generalized weakness, no focal deficits) - Psychiatric Psychiatric exam: Normal affect, Normal mood - Skin Skin exam: Dry, Intact, Normal color, Warm Course Vital Signs 07/30/19 07/30/19 07/30/19 11:47 12:43 13:18 Temperature 98.7 F Pulse Rate 111 H 96 H Pulse Rate [ 103 H Pulse Ox Probe] Respiratory 20 18 18 Rate Blood Pressure 121/81 Blood Pressure [Right Arm] Pulse Ox 89 L 93 L 93 L 07/30/19 07/30/19 13:40 14:15 Temperature Pulse Rate Pulse Rate [ 102 H 101 H Pulse Ox Probe] Respiratory 18 18 Rate Blood Pressure Blood Pressure 100/63 [Right Arm] Pulse Ox 93 L 91 L - Reevaluation(s) Reevaluation #1: 07/30/19 14:31 pts sats persistently dropping into 80s Reevaluation #2: 07/30/19 17:43 pt appeared more confused after receiving small dose of ativan Medical Decision Making - Lab Data Result diagrams: 07/30/19 12:00 07/30/19 12:00 Lab Results 07/30/19 07/30/19 07/30/19 Range/Units 12:00 12:00 12:00 WBC 2.7 L (4.2-12.2) K/uL RBC 4.51 (3.80-5.40) M/uL Hgb 14.2 (11.6-16.0) gm/dl Hct 44.1 (35.0-47.0) % MCV 97.8 H (81-97) fl MCH 31.5 (27-33) pg MCHC 32.2 (32-36) g/dl RDW 14.4 (11.5-14.5) % Plt Count 183 (130-400) K/uL MPV 9.7 (7.4-10.4) fl Neutrophils % 53.0 (47-80) % Eosinophils % Not Reportable Basophils % Not Reportable Absolute Neutrophils Not Reportable Lymphocytes 20.0 (16-45) % Monocytes 21.0 H (0-9) % Metamyelocytes 2.0 % ESR 73 H (0-30) mm/hr Eosinophil Count 3.0 (0-6) % Sodium 144 (136-145) mmol/L Potassium 3.7 (3.4-4.5) mmol/L Chloride 105 (98-107) mmol/L Carbon Dioxide 24.0 (22-29) mmol/L Anion Gap 15.0 (7-16) BUN 14 (6-20) mg/dL Creatinine 0.7 (0.5-0.9) mg/dL Estimated GFR > 60 mL/min Random Glucose 178 H (74-109) mg/dL Calcium 8.7 (8.6-10.0) mg/dL Total Bilirubin < 0.20 L (0.2-1.0) mg/dL AST 16 (10.0-35.0) U/L ALT 8 (<33) U/L Alkaline Phosphatase 108 H (35-104) U/L Total Protein 7.1 (6.6-8.7) g/dL Albumin 3.9 L (4.0-5.0) g/dL Globulin 3.2 (1.4-4.8) gm/dL Albumin/Globulin Ratio 1.2 (1.1-1.8) Disposition Disposition: Admit Clinical Impression: COPD with acute exacerbation, Hypoxia, Weakness, Confusion Disposition: Still a Patient at [facility] Decision to Admit: Admit from ER Decision to Admit Date: 07/30/19 Decision to Admit Time: 14:33 Forms: Patient Portal Access Quality - Quality Measures Quality Measures: N/A - Blood Pressure Screening Does Patient Have Any of the Following: No Blood Pressure Classification: Pre-Hypertensive BP Reading Systolic Measurement: 121 Diastolic Measurement: 81 Screening for High Blood Pressure: < Pre-Hypertensive BP, F/U Documented > [G8950] Pre-Hypertensive Follow-up Interventions: Follow-up with rescreen every year.
[2019-07-30] MEDS ORDERED: 0.9 % SODIUM CHLORIDE 1,000 ML BAG IV ONE (14:27)
[2019-07-30 15:26] LABS: URINE APPEARANCE CLEAR; URINE BILIRUBIN NEGATIVE (NEGATIVE); URINE BLOOD TRACE-I (NEGATIVE); URINE COLOR YELLOW; URINE GLUCOSE (UA) NEGATIVE (NEGATIVE); URINE KETONE TRACE (NEGATIVE); URINE LEUKOCYTE ESTERASE NEGATIVE (NEGATIVE); URINE NITRITE NEGATIVE (NEGATIVE); URINE PROTEIN TRACE (NEGATIVE); URINE UROBILINOGEN 0.2 E.U./dL (0.20 - 1.00)
[2019-07-30 15:30] LABS: AMPHETAMINE SCREEN URINE NOT DETECTED; BARBITURATE SCREEN URINE NOT DETECTED; BENZODIAZEPINE SCREEN URINE NOT DETECTED; COCAINE SCREEN URINE NOT DETECTED; METHADONE SCREEN URINE NOT DETECTED; METHAMPHETAMINE SCREEN NOT DETECTED; OPIATE SCREEN URINE DETECTED; OXYCODONE SCREEN URINE NOT DETECTED; PHENCYCLIDINE SCREEN URINE NOT DETECTED; PROPOXYPHENE SCREEN URINE NOT DETECTED; THC SCREEN URINE NOT DETECTED; TRICYCLIC ANTIDEPRESSANT SCRN NOT DETECTED
[2019-07-30 15:37] LABS: URINE EPITHELIAL CELLS NONE SEEN (FEW); URINE RBC 0 - 2 (NONE SEEN); URINE WBC NONE SEEN (0-2/hpf)
--- NOTE | 2019-07-30 17:28 | CT ANGIOGRAM REPORT ---
EXAMINATION: CT Angiography of the Thorax EXAM DATE: 07/30/2019 4:46 PM TECHNIQUE: Standard protocol CT angiogram images were obtained through the chest following the admini stration of intravenous contrast. Coronal and sagittal MIP 3-D reformations were performed. IV Contrast: The amount and type of contrast are recorded in the medical record. INDICATION: sob. COMPARISON: Chest radiograph dated 07/30/2019. ENCOUNTER: Not applicable FINDINGS: Pulmonary Artery: No pulmonary embolism is identified. Aorta: No thoracic aortic aneurysm or dissection is present. Right Heart Strain: None. Heart : There is no pericardial effusion. Gela and Mediastinum: No lymphadenopathy. Lung Parenchyma: Severe pulmonary emphysema. There is nodular appearing scarring, atelectasis, or pu lmonary infiltrate in the lingula and right middle lobe. There is no pneumothorax. Central Airways: There is diffuse bilateral bronchial wall thickening and right lower lobe mucous pl ugging. Pleural Effusion: None. Upper Abdomen: Unremarkable. Musculoskeletal and Chest Wall: Unremarkable. IMPRESSION: 1. No pulmonary embolism identified. 2. Severe pulmonary emphysema. 3 nodular appearing scarring, atelectasis, or pulmonary infiltrate in the lingula and right middle lo be. 4. Diffuse bilateral bronchial wall thickening and right lower lobe mucous plugging may reflect bronc hitis in the appropriate clinical setting. Dictated by: Kevon Almonte MD on 07/30/2019 5:12 PM. .
[2019-07-30] MEDS ORDERED: CEFTRIAXONE SODIUM 1 GM in 0.9 % SODIUM CHLORIDE 100ML 100 ML IVPB ONE (17:32)
[2019-07-30] MEDS ORDERED: ALBUTEROL SULFATE (0.083%) 2.5 MG/3 ML NEB INH PRN (19:30)
[2019-07-30] MEDS ORDERED: TRIAZOLAM 0.125 MG PO PRN (19:30)
[2019-07-30] MEDS ORDERED: FILGRASTIM IJ SCH (19:30)
[2019-07-30] MEDS: CEFTRIAXONE SODIUM 1 GM in 0.9 % SODIUM CHLORIDE 100ML 100 ML IVPB SCH (20:13)
[2019-07-31] MEDS: IPRATROPIUM/ALBUTEROL (0.5MG/3MG) NEB INH PRN ×2 (02:02→12:12)
[2019-07-31] MEDS: TEMAZEPAM 15 MG CAPSULE PO PRN (02:33)
[2019-07-31] MEDS: HYDROCODONE/APAP 7.5/325MG TABLET PO PRN ×3 (06:24→20:14)
[2019-07-31] MEDS: NYSTATIN 100,000 UNITS/ML 5ML CUP PO SCH ×4 (06:27→18:46)
--- NOTE | 2019-07-31 06:44 | History & Physical ---
History of Present Illness - Date of Service Date of Service for History & Physical: 07/31/19 - History of Present Illness Admitting Diagnosis: acute exacerbation of copd w hypoxia, confusion, weakness, pneumonia History of Present Illness: 48 y/o female presented to the ED for for productive cough since yesterday, she states she thinks she has pneumonia. She also c/o shakiness, weakness, difficulty walking. She also reports she has had sinus congestion for about a week. PAST MEDICAL/SURGICAL HISTORY Past Surgical History C SCOPE SCS IMPLANT 10-07-18 SCS trial hysterectomy oopherectomy bilateral brenda bilateral knee scope left lung resection right foot lumpectomy left breast chest tube for pneumo 2001 and 2008 right rotator cuff X2 left lung wedge resection "they found a benign spot" w/ chest tube 07/2015 skin graft right upper arm as a child c scope PMH - Respiratory Hx Respiratory Disorders Yes Hx Asthma Yes Hx Bronchitis Yes Hx Chronic Obstructive Yes: USES INHALER DAILY Pulmonary Disease (COPD) Hx Pneumonia Yes Hx of SOB Yes: with exertion Comment: spontaneous pneumo on left/wedge rsxn left benign area 2008 with chest tube PMH - Cardiovascular Hx Cardiovascular Disorders Yes Hx Chest Pain No: DENIES Hx Hypotension Yes Hx Palpitations Yes: due to graves disease Hx Transient Ischemic Attacks Yes: possibly yrs ago (TIA) Hx of Migraines Yes: 2-3 x's a month PMH - Neuro Hx Neurological Disorders Yes Hx Headaches Yes: daily Hx Neuropathy Yes: hands and feet Hx Transient Ischemic Attacks Yes: possibly yrs ago (TIA) Comment: cerabeller tonsil malformation PMH - GI Hx Gastrointestinal Disorders No Hx Abdominal Pain Yes Hx Diverticulitis Yes Hx Nausea/Vomiting Yes Hx Rectal Bleeding Yes: in past PMH - Hx Genitourinary Disorders No Patient No Comment: s/p hyst PMH - Endocrine Hx Endocrine Disorders Yes Hx Diabetes No Hx Thyroid Disease Yes: graves disease PMH - Musculoskeletal Hx Musculoskeletal Disorders Yes Hx Arthritis Yes: RA Hx Fibromyalgia Yes Comment: RA PMH - Psych Hx Psychiatric Problems Yes Hx Anxiety Yes Hx Depression Yes PMH - Hematology/Oncology Hx Hematology/Oncology Yes Disorders Hx Anemia Yes Hx Blood Disorders Yes: neutropenia nuepogen wkly Comment: bone marrow test 2014, neutropenic unknown etiology Laboratory Results WBC 1.5 K/uL (4.2-12.2) L 07/31/19 06:45 RBC 3.91 M/uL (3.80-5.40) 07/31/19 06:45 Hgb 12.1 gm/dl (11.6-16.0) 07/31/19 06:45 Hct 37.7 % (35.0-47.0) 07/31/19 06:45 MCV 96.4 fl (81-97) 07/31/19 06:45 MCH 30.9 pg (27-33) 07/31/19 06:45 MCHC 32.1 g/dl (32-36) 07/31/19 06:45 RDW 13.9 % (11.5-14.5) 07/31/19 06:45 Plt Count 177 K/uL (130-400) 07/31/19 06:45 MPV 9.2 fl (7.4-10.4) 07/31/19 06:45 Neutrophils % 49.0 % (47-80) 07/31/19 06:45 Band Neutrophils % 3.0 % (0-5) 07/31/19 06:45 Eosinophils % Not Reportable 07/31/19 06:45 Basophils % Not Reportable 07/31/19 06:45 Absolute Neutrophils TNP 07/31/19 06:45 Lymphocytes 26.0 % (16-45) 07/31/19 06:45 Monocytes 22.0 % (0-9) H 07/31/19 06:45 Metamyelocytes 2.0 % 07/30/19 12:00 RBC Morphology Normal 07/31/19 06:45 ESR 73 mm/hr (0-30) H 07/30/19 12:00 Eosinophil Count 3.0 % (0-6) 07/30/19 12:00 D-Dimer 0.62 mg/L FEU (0-0.59) H 07/30/19 12:00 Sodium 144 mmol/L (136-145) 07/30/19 12:00 Potassium 3.7 mmol/L (3.4-4.5) 07/30/19 12:00 Chloride 105 mmol/L (98-107) 07/30/19 12:00 Carbon Dioxide 24.0 mmol/L (22-29) 07/30/19 12:00 Anion Gap 15.0 (7-16) 07/30/19 12:00 BUN 14 mg/dL (6-20) 07/30/19 12:00 Creatinine 0.7 mg/dL (0.5-0.9) 07/30/19 12:00 Estimated GFR > 60 mL/min 07/30/19 12:00 Random Glucose 178 mg/dL (74-109) H 07/30/19 12:00 Calcium 8.7 mg/dL (8.6-10.0) 07/30/19 12:00 Total Bilirubin < 0.20 mg/dL (0.2-1.0) L 07/30/19 12:00 AST 16 U/L (10.0-35.0) 07/30/19 12:00 ALT 8 U/L (<33) 07/30/19 12:00 Alkaline Phosphatase 108 U/L (35-104) H 07/30/19 12:00 Ammonia 20 umol/L (11.0-51.0) 07/30/19 16:08 Total Protein 7.1 g/dL (6.6-8.7) 07/30/19 12:00 Albumin 3.9 g/dL (4.0-5.0) L 07/30/19 12:00 Globulin 3.2 gm/dL (1.4-4.8) 07/30/19 12:00 Albumin/Globulin Ratio 1.2 (1.1-1.8) 07/30/19 12:00 Urine Color Yellow 07/30/19 15:24 Urine Appearance Clear 07/30/19 15:24 Urine pH 6.0 (5.0-8.0) 07/30/19 15:24 Ur Specific [place] 1.025 (1.002-1.030) 07/30/19 15:24 Urine Protein Trace (NEGATIVE) H 07/30/19 15:24 Urine Glucose (UA) Negative (NEGATIVE) 07/30/19 15:24 Urine Ketones Trace (NEGATIVE) H 07/30/19 15:24 Urine Blood Trace-i (NEGATIVE) 07/30/19 15:24 Urine Nitrite Negative (NEGATIVE) 07/30/19 15:24 Urine Bilirubin Negative (NEGATIVE) 07/30/19 15:24 Urine Urobilinogen 0.2 E.U./dL (0.20 - 1.00) 07/30/19 15:24 Ur Leukocyte Esterase Negative (NEGATIVE) 07/30/19 15:24 Urine RBC 0 - 2 (NONE SEEN) 07/30/19 15:24 Urine WBC None seen (0-2/hpf) 07/30/19 15:24 Ur Epithelial Cells None seen (FEW) 07/30/19 15:24 Urine Opiates Screen Detected 07/30/19 15:24 Ur Oxycodone Screen Not detected 07/30/19 15:24 Urine Methadone Screen Not detected 07/30/19 15:24 Ur Propoxyphene Screen Not detected 07/30/19 15:24 Ur Barbituates Screen Not detected 07/30/19 15:24 Ur Tricyclics Screen Not detected 07/30/19 15:24 Ur Phencyclidine Scrn Not detected 07/30/19 15:24 Ur Amphetamine Screen Not detected 07/30/19 15:24 U Methamphetamines Scrn Not detected 07/30/19 15:24 U Benzodiazepines Scrn Not detected 07/30/19 15:24 Urine Cocaine Screen Not detected 07/30/19 15:24 Urine Cannabis Screen Not detected 07/30/19 15:24 Vital Signs - Last 24 Hrs Temp Pulse Pulse Resp BP BP Pulse Ox 07/31/19 12:12 94 H 18 99 07/31/19 12:00 99.1 F 94 H 17 132/75 92 L 07/31/19 08:00 98.5 F 93 H 16 106/74 93 L 07/31/19 02:16 98.1 F 95 H 18 110/58 94 L 07/31/19 02:02 99 H 16 07/30/19 23:18 97.7 F 94 H 18 110/68 95 07/30/19 18:23 93 H 16 100/53 94 L 07/30/19 18:05 98.8 F 100 H 17 119/69 93 L 07/30/19 17:55 93 H 16 100/53 94 L 07/30/19 16:15 18 99/59 96 07/30/19 15:25 100 H 16 109/65 93 L 07/30/19 14:15 101 H 18 100/63 91 L While in the ED she was afebrile, VSS other than slight tachycardia. EKG showed consistent artifact mimicking a-fib but has a spinal stimulator implant. SPO2 RA 89%, desats to mid 80's while ambulating, she was placed on O2 with SPO2 improving to 94-96 on 1-2L. WBC 2.7, d-dimer 0.62. CMP unremarkable. U/A unremarkable. Urine drug screen + for opiates but does take Buchanan regularly. CXR showed COPD with stable scarring/fibrosis. Head CT done due to confusion and was negative for acute process but did show right parasinus nasal disease. CTA of chest showed severe emphysema and RML nodular density, not able to rule out infiltrate and RLL mucus plugging. She was observed to be tremorous, was given Ativan but caused an increase in confusion. Confusion improved after oxygen was placed and ativan wore off. 07/31/19 0900- Resting in bed, appears acutely ill. No obvious tremoring or respiratory distress. Patient reports she feels "terrible" and has a headache which is causing her photo/phono sensitivity which is a common pattern for her history of migraines. She did take a Buchanan earlier in the morning which usually works at home but did not. Travel Screening - Travel/Exposure Within Last 30 Days Have you traveled within the last 30 days?: No - Travel/Exposure Within Last Year Have you traveled outside the [place] in the last year?: No - Additonal Travel Details Have you been exposed to anyone with a communicable illness?: No - Travel Symptoms Symptom Screening: None Review of Systems Constitutional: Reports: As per HPI. Denies: Chills, Fever, Malaise, Night sweats, Weakness, Weight change Eyes: Reports: As per HPI. Denies: Eye discharge, Eye pain, Photophobia, Vision change ENT: Reports: As per HPI. Denies: Congestion, Dental pain, Ear pain, Epistaxis, Hearing loss, Throat pain Respiratory: Reports: As per HPI. Denies: Cough, Dyspnea, Hemoptysis, Stridor, Wheezes Cardiovascular: Reports: As per HPI. Denies: Arrhythmia, Chest pain, Dyspnea on exertion, Edema, Murmurs, Orthopnea, Palpitations, Paroxysmal nocturnal dyspnea, Rheumatic Fever, Syncope Endocrine: Reports: As per HPI. Denies: Fatigue, Heat or cold intolerance, Polydipsia, Polyuria Gastrointestinal: Reports: As per HPI. Denies: Abdominal pain, Constipation, Diarrhea, Hematemesis, Hematochezia, Melena, Nausea, Vomiting Genitourinary: Reports: As per HPI. Denies: Abnormal menses, Discharge, Dyspareunia, Dysuria, Frequency, Hematuria, Incontinence, Retention, Urgency Musculoskeletal: Reports: As per HPI. Denies: Arthralgia, Back pain, Gout, Joint swelling, Myalgia, Neck pain Skin: Reports: As per HPI. Denies: Bruising, Change in color, Change in hair/nails, Lesions, Pruritus, Rash Neurological: Reports: As per HPI. Denies: Abnormal gait, Confusion, Headache, Numbness, Paresthesias, Seizure, Tingling, Tremors, Vertigo, Weakness Psychiatric: Reports: As per HPI. Denies: Anxiety, Auditory hallucinations, Depression, Homicidal thoughts, Suicidal thoughts, Visual hallucinations Hematological/Lymphatic: Reports: As per HPI. Denies: Anemia, Blood Clots, Easy bleeding, Easy bruising, Swollen glands Past Medical History - SOCIAL HISTORY Smoking Status: Light tobacco smoker (<10/day) Alcohol Use: None Drug Use: None - RESPIRATORY Hx Respiratory Disorders: Yes Hx COPD: Yes (USES INHALER DAILY) Comment:: spontaneous pneumo on left/wedge rsxn left benign area 2009 with chest tube - CARDIOVASCULAR Hx Cardio Disorders: Yes Hx Chest Pain: No (DENIES) Hx Hypotension: Yes Hx Palpitations: Yes (due to graves disease) - NEURO Hx Neuro Disorders: Yes Hx TIA: Yes (possibly yrs ago) - GI Hx GI Disorders: No - Hx Genitourinary Disorders: No Comment:: s/p hyst - ENDOCRINE Hx Endocrine Disorders: Yes Hx Diabetes: No Hx Thyroid Disease: Yes (graves disease) - MUSCULOSKELETAL Hx Musculoskeletal Disorders: Yes Hx Arthritis: Yes (RA) Hx Fibromyalgia: Yes - PSYCH Hx Psych Problems: Yes Hx Anxiety: Yes Hx Depression: Yes - HEMATOLOGY/ONCOLOGY Hx Hematology/Oncology Disorders: Yes Hx Anemia: Yes Hx Blood Disorders: Yes (neutropenia nuepogen wkly) Comment:: bone marrow test 2014, neutropenic unknown etiology Family Medical History Any Significant Family History?: Yes Hx Cancer: Father, Mother, Grandparents Hx Heart Disease: Father, Mother, Grandparents Hx Stroke: Grandparents H&P Meds/Allergies - Allergies Allergies: Allergies Allergy/AdvReac Type Severity Reaction Status Date / Time adhesive tape Allergy Intermediate BLISTERS Verified 07/30/19 11:59 codeine AdvReac Intermediate VOMITING Verified 07/30/19 11:59 - Active Medications Active Medications: Current Medications Acetaminophen (Tylenol 325mg) 650 mg PO Q6H PRN PRN Reason: PAIN - MILD(1-4)/FEVER Hydrocodone Bitart/Acetaminophen (Buchanan 7.5mg/325mg) 1 each PO Q6H PRN PRN Reason: PAIN - MOD TO SEVERE (5-10) Last Admin: 07/31/19 06:24 Dose: 1 each Documented by: Albuterol Sulfate (Albuterol Sulfate) 2.5 mg INH RESP.Q4H PRN PRN Reason: DIFFICULTY IN BREATHING Albuterol/Ipratropium (Duoneb) 3 ml INH RESP.Q6H PRN PRN Reason: WHEEZING Last Admin: 07/31/19 02:02 Dose: 3 ml Documented by: Azithromycin (Zithromax) 500 mg PO DAILY [facility] Ceftriaxone Sodium 1 gm/ (Sodium Chloride) 100 mls @ 100 mls/hr IVPB Q24H TARA Stop: 08/04/19 19:31 Last Admin: 07/30/19 20:13 Dose: Not Given Documented by: Methylprednisolone Sodium Succinate (Solu-Medrol) 125 mg IVP DAILY [facility] Non-Formulary Medication (Filgrastim [Neupogen]) 1 syringe IJ QWEEK [facility] Non-Formulary Medication (Leflunomide [Leflunomide]) 10 mg PO DAILY [facility] Non-Formulary Medication (Triazolam [Triazolam]) 0.125 mg PO QHS PRN PRN Reason: INSOMNIA Nystatin () 5 ml PO QID TARA Last Admin: 07/31/19 06:27 Dose: 5 ml Documented by: Temazepam (Restoril) 15 mg PO QHS PRN PRN Reason: INSOMNIA Last Admin: 07/31/19 02:33 Dose: 15 mg Documented by: Physical Exam - Vital Signs Vital Signs: Vital Signs - Last 24 Hrs Temp Pulse Pulse Resp BP BP Pulse Ox 07/31/19 02:16 98.1 F 95 H 18 110/58 94 L 07/31/19 02:02 99 H 16 07/30/19 23:18 97.7 F 94 H 18 110/68 95 07/30/19 18:23 93 H 16 100/53 94 L 07/30/19 18:05 98.8 F 100 H 17 119/69 93 L 07/30/19 17:55 93 H 16 100/53 94 L 07/30/19 16:15 18 99/59 96 07/30/19 15:25 100 H 16 109/65 93 L 07/30/19 14:15 101 H 18 100/63 91 L 07/30/19 13:40 102 H 18 93 L 07/30/19 13:18 103 H 18 93 L 07/30/19 12:43 96 H 18 93 L 07/30/19 11:47 98.7 F 111 H 20 121/81 89 L - General General Appearance: Alert, Oriented x3, Cooperative, Mild distress Limitations: Altered mental status - Head Head exam: Normal inspection - Eye Eye exam: Normal appearance, PERRL, EOMI Pupils: Normal accommodation - ENT ENT exam: Normal exam, Mucous membranes dry, Normal external ear exam, Normal orophraynx, TM's normal bilaterally Ear exam: Normal external inspection. negative: External canal tenderness Nasal Exam: Normal inspection, Sinus tenderness (maxillary and frontal). negative: Discharge Mouth exam: Normal external inspection, Tongue normal Teeth exam: Normal inspection. negative: Dental caries Throat exam: Normal inspection. negative: Tonsillar erythema, Tonsillar exudate - Neck Neck exam: Normal inspection, Full ROM, Lymphadenopathy (anterior chain), Other (no neck stiffness. Negative Kernigs and Brudzinski). negative: Tenderness - Respiratory Respiratory exam: Rales. negative: Respiratory distress - Cardiovascular Cardiovascular Exam: Regular rate, Normal rhythm, Normal heart sounds - GI/Abdominal GI/Abdominal exam: Soft, Normal bowel sounds. negative: Tenderness - Rectal Rectal exam: Deferred - exam: Deferred - Extremities Extremities exam: Normal inspection, Full ROM, Normal capillary refill. negative: Tenderness - Back Back exam: Reports: Normal inspection, Full ROM. Denies: Muscle spasm, Rash noted, Tenderness - Neurological Neurological exam: Alert, CN II-XII intact, Normal gait, Oriented X3, Other - Psychiatric Psychiatric exam: Anxious, Normal affect - Skin Skin exam: Dry, Intact, Normal color, Warm Results - Labs Result Diagrams: 07/31/19 06:45 07/30/19 12:00 Labs Last 24 Hours: Laboratory Results - last 24 hr 07/30/19 07/30/19 07/30/19 12:00 12:00 12:00 WBC 2.7 L RBC 4.51 Hgb 14.2 Hct 44.1 MCV 97.8 H MCH 31.5 MCHC 32.2 RDW 14.4 Plt Count 183 MPV 9.7 Neutrophils % 53.0 Eosinophils % Not Reportable Basophils % Not Reportable Absolute Neutrophils Not Reportable Lymphocytes 20.0 Monocytes 21.0 H Metamyelocytes 2.0 ESR 73 H Eosinophil Count 3.0 D-Dimer Sodium 144 Potassium 3.7 Chloride 105 Carbon Dioxide 24.0 Anion Gap 15.0 BUN 14 Creatinine 0.7 Estimated GFR > 60 Random Glucose 178 H Calcium 8.7 Total Bilirubin < 0.20 L AST 16 ALT 8 Alkaline Phosphatase 108 H Ammonia Total Protein 7.1 Albumin 3.9 L Globulin 3.2 Albumin/Globulin Ratio 1.2 Urine Color Urine Appearance Urine pH Ur Specific [place] Urine Protein Urine Glucose (UA) Urine Ketones Urine Blood Urine Nitrite Urine Bilirubin Urine Urobilinogen Ur Leukocyte Esterase Urine RBC Urine WBC Ur Epithelial Cells Urine Opiates Screen Ur Oxycodone Screen Urine Methadone Screen Ur Propoxyphene Screen Ur Barbituates Screen Ur Tricyclics Screen Ur Phencyclidine Scrn Ur Amphetamine Screen U Methamphetamines Scrn U Benzodiazepines Scrn Urine Cocaine Screen Urine Cannabis Screen 07/30/19 07/30/19 07/30/19 12:00 15:24 15:24 WBC RBC Hgb Hct MCV MCH MCHC RDW Plt Count MPV Neutrophils % Eosinophils % Basophils % Absolute Neutrophils Lymphocytes Monocytes Metamyelocytes ESR Eosinophil Count D-Dimer 0.62 H Sodium Potassium Chloride Carbon Dioxide Anion Gap BUN Creatinine Estimated GFR Random Glucose Calcium Total Bilirubin AST ALT Alkaline Phosphatase Ammonia Total Protein Albumin Globulin Albumin/Globulin Ratio Urine Color Yellow Urine Appearance Clear Urine pH 6.0 Ur Specific [place] 1.025 Urine Protein Trace H Urine Glucose (UA) Negative Urine Ketones Trace H Urine Blood Trace-i Urine Nitrite Negative Urine Bilirubin Negative Urine Urobilinogen 0.2 Ur Leukocyte Esterase Negative Urine RBC 0 - 2 Urine WBC None seen Ur Epithelial Cells None seen Urine Opiates Screen Detected Ur Oxycodone Screen Not detected Urine Methadone Screen Not detected Ur Propoxyphene Screen Not detected Ur Barbituates Screen Not detected Ur Tricyclics Screen Not detected Ur Phencyclidine Scrn Not detected Ur Amphetamine Screen Not detected U Methamphetamines Scrn Not detected U Benzodiazepines Scrn Not detected Urine Cocaine Screen Not detected Urine Cannabis Screen Not detected 07/30/19 16:08 WBC RBC Hgb Hct MCV MCH MCHC RDW Plt Count MPV Neutrophils % Eosinophils % Basophils % Absolute Neutrophils Lymphocytes Monocytes Metamyelocytes ESR Eosinophil Count D-Dimer Sodium Potassium Chloride Carbon Dioxide Anion Gap BUN Creatinine Estimated GFR Random Glucose Calcium Total Bilirubin AST ALT Alkaline Phosphatase Ammonia 20 Total Protein Albumin Globulin Albumin/Globulin Ratio Urine Color Urine Appearance Urine pH Ur Specific [place] Urine Protein Urine Glucose (UA) Urine Ketones Urine Blood Urine Nitrite Urine Bilirubin Urine Urobilinogen Ur Leukocyte Esterase Urine RBC Urine WBC Ur Epithelial Cells Urine Opiates Screen Ur Oxycodone Screen Urine Methadone Screen Ur Propoxyphene Screen Ur Barbituates Screen Ur Tricyclics Screen Ur Phencyclidine Scrn Ur Amphetamine Screen U Methamphetamines Scrn U Benzodiazepines Scrn Urine Cocaine Screen Urine Cannabis Screen - Imaging and Cardiology CT scan - head Status: Report reviewed Chest x-ray Status: Report reviewed VTE H&P Assessment - Risk for VTE Risk for VTE: Yes Risk Level: Moderate Risk Assessment Date: 07/31/19 Risk Assessment Time: 14:20 VTE Orders Placed or Will Be Placed: Yes Plan - Inpatient Certification Inpatient Certification: Admit to inpatient care: Based on my medical assessment, after consideration of patient's risk factors (age, co-morbidities and patient presenting symptoms and acuity), I expect that this patient will remain in the hospital greater than or equal to two midnights and that the services needed warrant inpatient care because: Patient Risk Factors: [chronic illness, pneumonia, confusion] Estimated length of stay: [48-72 hours] The patient may reasonably be expected to be discharged or transferred to a hospital within 96 hours after admission to [facility]. Services needed: [nursing, oxygen, IV fluids, IV antibiotics, nebulizer treatments] Post hospital care (if known): [] I certify that my determination is in accordance with my understanding of Medicare requirements for reasonable and necessary inpatient services. 07/31/19 14:20 - Detailed Diagnosis and Plan (1) Pneumonia Current Visit: Yes Status: Acute Qualifiers: Pneumonia type: due to unspecified organism Laterality: right Lung location: middle lobe of lung Qualified Code(s): J18.9 - Pneumonia, unsp ecified organism Base Code: J18.9 - PNEUMONIA, UNSPECIFIED ORGANISM Comment: 07/31/19 - Rocephin 1gm QD, Azithromycin 500mg QD - O2 to keep SPO2 88-92% - Duo neb Q6hr PRN, Albuterol Q4hr PRN - Solumedrol 125mg QD (2) COPD with acute exacerbation Current Visit: Yes Status: Acute Base Code: J44.1 - CHRONIC OBSTRUCTIVE PULMONARY DISEASE W (ACUTE) EXACERBATION Comment: 07/31/19 - Rocephin 1gm QD, Azithromycin 500mg QD - O2 to keep SPO2 88-92% - Duo neb Q6hr PRN, Albuterol Q4hr PRN - Solumedrol 125mg QD (3) Confusion Current Visit: Yes Status: Acute Base Code: R41.0 - DISORIENTATION, UNSPECIFIED Comment: 07/31/19 - Has resolved, may have been due to acute illness and anxiety - Urine culture pending - CT head negative (4) Neutropenia Current Visit: No Status: Acute Base Code: D70.9 - NEUTROPENIA, UNSPECIFIED Comment: 07/31/19 - WBC 2.7--> 1.5 - Neupogen weekly (5) Hypoxia Current Visit: Yes Status: Acute Base Code: R09.02 - HYPOXEMIA Comment: 07/31/19 - Oxygen supplementation - Treating cause (6) Acute non-recurrent pansinusitis Current Visit: Yes Status: Acute Base Code: J01.40 - ACUTE PANSINUSITIS, UNSPECIFIED Comment: 07/31/19 - Rocephin 1g QD to cover - Will discharge home on Augmentin (7) Anxiety Current Visit: Yes Status: Acute Base Code: F41.9 - ANXIETY DISORDER, UNSPECIFIED Comment: 07/31/19 - Xanax 0.25mg Q8hr PRN (8) Migraines Current Visit: Yes Status: Acute Qualifiers: Migraine type: without aura Intractability: not intractable Base Code: G43.909 - MIGRAINE, UNSP, NOT INTRACTABLE, WITHOUT STATUS MIGRAINOSUS Comment: 07/31/19 - No neurological findings or fever - Likely triggered by acute illness, sinustis, anxiety - Buchanan and Toradal unsuccessful - Imitrex 6mg sub Q (9) Full code status Current Visit: Yes Status: Acute Base Code: Z78.9 - OTHER SPECIFIED HEALTH STATUS Comment: 07/31/19 (10) DVT prophylaxis Current Visit: Yes Status: Acute Base Code: [id number] - Comment: 07/31/19- lovenox 40 daily
[2019-07-31 07:03] LABS: HEMATOCRIT 37.7 % (35.0-47.0); HEMOGLOBIN 12.1 gm/dl (11.6-16.0); MEAN CELL VOLUME 96.4 fl (81-97); MEAN CORPUSCULAR HEMOGLOBIN 30.9 pg (27-33); MEAN CORPUSCULAR HGB CONC 32.1 g/dl (32-36); MEAN PLATELET VOLUME 9.2 fl (7.4-10.4); PLATELET COUNT 177 K/uL (130-400); RED BLOOD COUNT 3.91 M/uL (3.80-5.40); RED CELL DISTRIBUTION WIDTH 13.9 % (11.5-14.5); WHITE BLOOD COUNT W/O DIFF 1.5 K/uL (4.2-12.2)
[2019-07-31] MEDS ORDERED: KETOROLAC 30 MG/ML VIAL IVP ONE ×2 (09:05→17:52)
[2019-07-31] MEDS ORDERED: Non-Formulary MISC (Leflunomide [Leflunomide] 10 MG) PO SCH (10:00)
[2019-07-31] MEDS: ENOXAPARIN 40 MG/0.4 ML SYR SQ SCH (10:07)
[2019-07-31] MEDS: METHYLPREDNISOLONE PF 125MG/VIAL IVP SCH (10:08)
[2019-07-31] MEDS: AZITHROMYCIN 500 MG TABLET PO SCH (10:08)
[2019-07-31] MEDS: ACETAMINOPHEN 325 MG TAB PO PRN ×2 (14:07→20:16)
[2019-07-31] MEDS ORDERED: SUMATRIPTAN 6 MG/0.5 ML VIAL SQ ONE (14:23)
[2019-07-31] MEDS ORDERED: ONDANSETRON HCL IV 4 MG/2 ML VIAL IVP PRN (14:29)
[2019-07-31] MEDS: ALPRAZOLAM 0.25 MG TABLET PO PRN (15:04)
[2019-07-31] MEDS ORDERED: DIPHENHYDRAMINE HCL 50 MG/ML VIAL IVP ONE (17:52)
[2019-07-31] MEDS ORDERED: METOCLOPRAMIDE HCL 10 MG/2 ML VIAL IVP ONE (17:52)
[2019-07-31] MEDS: CEFTRIAXONE SODIUM 1 GM in 0.9 % SODIUM CHLORIDE 100ML 100 ML IVPB SCH (20:15)
[2019-08-01] MEDS: IPRATROPIUM/ALBUTEROL (0.5MG/3MG) NEB INH PRN ×2 (00:03→16:42)
[2019-08-01] MEDS: TEMAZEPAM 15 MG CAPSULE PO PRN (00:20)
[2019-08-01] MEDS: ALPRAZOLAM 0.25 MG TABLET PO PRN (00:21)
[2019-08-01] MEDS: NYSTATIN 100,000 UNITS/ML 5ML CUP PO SCH ×3 (00:28→14:45)
[2019-08-01] MEDS: ACETAMINOPHEN 325 MG TAB PO PRN ×2 (05:16→12:50)
[2019-08-01] MEDS: HYDROCODONE/APAP 7.5/325MG TABLET PO PRN ×2 (05:17→12:50)
[2019-08-01] MEDS ORDERED: 0.9 % SODIUM CHLORIDE 1000ML 1,000 ML IV PRN (09:12)
--- NOTE | 2019-08-01 09:29 | Physician Progress Note ---
Subjective - Date Date of Physician Progress Note: 08/01/19 Objective - Vital Signs Vital Signs: Vital Signs - Last 24 Hrs Temp Pulse Pulse Resp BP Pulse Ox 08/01/19 05:15 98.4 F 83 14 114/64 93 L 08/01/19 00:05 89 16 95 08/01/19 00:00 98.1 F 86 16 112/62 98 07/31/19 20:00 98.6 F 82 16 113/74 95 07/31/19 14:30 98.7 F 99 H 24 117/77 92 L 07/31/19 12:12 94 H 18 99 07/31/19 12:00 99.1 F 94 H 17 132/75 92 L - General General Appearance: Alert, Oriented x3, Cooperative, Mild distress Limitations: Altered mental status - Head Head exam: Normal inspection - Eye Eye exam: Normal appearance, PERRL, EOMI Pupils: Normal accommodation - ENT ENT exam: Normal exam, Mucous membranes dry, Normal external ear exam, Normal orophraynx, TM's normal bilaterally Ear exam: Normal external inspection. negative: External canal tenderness Nasal Exam: Normal inspection, Sinus tenderness (maxillary and frontal). negative: Discharge Mouth exam: Normal external inspection, Tongue normal Teeth exam: Normal inspection. negative: Dental caries Throat exam: Normal inspection. negative: Tonsillar erythema, Tonsillar exudate - Neck Neck exam: Normal inspection, Full ROM, Lymphadenopathy (anterior chain), Other (no neck stiffness. Negative Kernigs and Brudzinski). negative: Tenderness - Respiratory Respiratory exam: Rales. negative: Respiratory distress - Cardiovascular Cardiovascular Exam: Regular rate, Normal rhythm, Normal heart sounds - GI/Abdominal GI/Abdominal exam: Soft, Normal bowel sounds. negative: Tenderness - Rectal Rectal exam: Deferred - exam: Deferred - Extremities Extremities exam: Normal inspection, Full ROM, Normal capillary refill. negative: Tenderness - Back Back exam: Reports: Normal inspection, Full ROM. Denies: Muscle spasm, Rash noted, Tenderness - Neurological Neurological exam: Alert, CN II-XII intact, Normal gait, Oriented X3, Other - Psychiatric Psychiatric exam: Anxious, Normal affect - Skin Skin exam: Dry, Intact, Normal color, Warm Assessment and Plan - Assessment and Plan (1) Pneumonia Current Visit: Yes Status: Acute Qualifiers: Pneumonia type: due to unspecified organism Laterality: right Lung location: middle lobe of lung Qualified Code(s): J18.9 - Pneumonia, unspecified organism Base Code: J18.9 - PNEUMONIA, UNSPECIFIED ORGANISM Comment: 08/01/19 - Is feeling a little better today, not as short of breath, cough is becoming more productive - Appetite poor, no nausea. NS at 100ml/hr for hydration - Rocephin 1gm QD, Azithromycin 500mg QD - O2 to keep SPO2 88-92% - Duo neb Q6hr PRN, Albuterol Q4hr PRN - Solumedrol 125mg QD (2) COPD with acute exacerbation Current Visit: Yes Status: Acute Base Code: J44.1 - CHRONIC OBSTRUCTIVE PULMONARY DISEASE W (ACUTE) EXACERBATION Comment: 08/01/19 - Rocephin 1gm QD, Azithromycin 500mg QD - O2 to keep SPO2 88-92% - Duo neb Q6hr PRN, Albuterol Q4hr PRN - Solumedrol 125mg QD (3) Confusion Current Visit: Yes Status: Acute Base Code: R41.0 - DISORIENTATION, UNSPECIFIED Comment: 08/01/19 - Has resolved, may have been due to acute illness and anxiety - Urine culture pending - CT head negative (4) Neutropenia Current Visit: No Status: Acute Base Code: D70.9 - NEUTROPENIA, UNSPECIFIED Comment: 08/01/19 - WBC 2.7--> 1.5 - Neupogen weekly (5) Hypoxia Current Visit: Yes Status: Acute Base Code: R09.02 - HYPOXEMIA Comment: 08/01/19 - Oxygen supplementation - Treating cause (6) Acute non-recurrent pansinusitis Current Visit: Yes Status: Acute Base Code: J01.40 - ACUTE PANSINUSITIS, UNSPECIFIED Comment: 08/01/19 - Rocephin 1g QD to cover - Will discharge home on Augmentin (7) Anxiety Current Visit: Yes Status: Acute Base Code: F41.9 - ANXIETY DISORDER, UNSPECIFIED Comment: 08/01/19 - Xanax 0.25mg Q8hr PRN (8) Migraines Current Visit: Yes Status: Acute Qualifiers: Migraine type: without aura Intractability: not intractable Base Code: G43.909 - MIGRAINE, UNSP, NOT INTRACTABLE, WITHOUT STATUS MIGRAINOSUS Comment: 08/01/19 - No neurological findings or fever - Likely triggered by acute illness, sinustis, anxiety - [place] and [place] unsuccessful - Imitrex 6mg sub Q (9) Full code status Current Visit: Yes Status: Acute Base Code: Z78.9 - OTHER SPECIFIED HEALTH STATUS Comment: 08/01/19 (10) DVT prophylaxis Current Visit: Yes Status: Acute Base Code: [id number] - Comment: 08/01/19- lovenox 40 daily Results - Labs Result Diagrams: 07/31/19 06:45 07/30/19 12:00 DVT/PE Assessment - Risk for VTE Risk for VTE: No Risk Level: Moderate Risk Assessment Date: 07/31/19 Risk Assessment Time: 14:20 VTE Orders Placed or Will Be Placed: Yes - Active Medicaitons Current Medications: Current Medications Acetaminophen (Tylenol 325mg) 650 mg PO Q6H PRN PRN Reason: PAIN - MILD(1-4)/FEVER Last Admin: 08/01/19 05:16 Dose: 650 mg Documented by: Hydrocodone Bitart/Acetaminophen ([place] 7.5mg/325mg) 1 each PO Q6H PRN PRN Reason: PAIN - MOD TO SEVERE (5-10) Last Admin: 08/01/19 05:17 Dose: 1 each Documented by: Albuterol Sulfate (Albuterol Sulfate) 2.5 mg INH RESP.Q4H PRN PRN Reason: DIFFICULTY IN BREATHING Albuterol/Ipratropium (Duoneb) 3 ml INH RESP.Q6H PRN PRN Reason: WHEEZING Last Admin: 08/01/19 00:03 Dose: 3 ml Documented by: Alprazolam (Xanax) 0.25 mg PO Q8H PRN PRN Reason: ANXIETY Last Admin: 08/01/19 00:21 Dose: 0.25 mg Documented by: Azithromycin (Zithromax) 500 mg PO DAILY TARA Last Admin: 07/31/19 10:08 Dose: 500 mg Documented by: Enoxaparin Sodium (Lovenox) 40 mg SQ DAILY [facility] Last Admin: 07/31/19 10:07 Dose: 40 mg Documented by: Ceftriaxone Sodium 1 gm/ (Sodium Chloride) 100 mls @ 100 mls/hr IVPB Q24H TARA Stop: 08/04/19 19:31 Last Infusion: 07/31/19 21:15 Dose: Infused Documented by: Methylprednisolone Sodium Succinate (Solu-Medrol) 125 mg IVP DAILY [facility] Last Admin: 07/31/19 10:08 Dose: 125 mg Documented by: Non-Formulary Medication (Filgrastim [Neupogen]) 1 syringe IJ QWEEK [facility] Non-Formulary Medication (Leflunomide [Leflunomide]) 10 mg PO DAILY [facility] Non-Formulary Medication (Triazolam [Triazolam]) 0.125 mg PO QHS PRN PRN Reason: INSOMNIA Nystatin () 5 ml PO QID [facility] Last Admin: 08/01/19 00:28 Dose: 5 ml Documented by: Ondansetron HCl (Zofran) 4 mg IVP Q8H PRN PRN Reason: NAUSEA Temazepam (Restoril) 15 mg PO QHS PRN PRN Reason: INSOMNIA Last Admin: 08/01/19 00:20 Dose: 15 mg Documented by: CRUZ Plan - Labs Result Diagrams: 07/31/19 06:45 07/30/19 12:00
[2019-08-01] MEDS: AZITHROMYCIN 500 MG TABLET PO SCH (10:04)
[2019-08-01] MEDS: ENOXAPARIN 40 MG/0.4 ML SYR SQ SCH (10:04)
[2019-08-01] MEDS: METHYLPREDNISOLONE PF 125MG/VIAL IVP SCH (11:41)
[2019-08-01] MEDS ORDERED: GUAIFENESIN/D-METH. 10 ML UDC PO PRN (16:22)
[2019-08-01] MEDS ORDERED: NAPROXEN 250 MG TABLET PO ONE (17:45)
[2019-08-01] MEDS ORDERED: SUMATRIPTAN 6 MG/0.5 ML VIAL SQ ONE (17:45)
--- NOTE | 2019-08-04 08:23 | Discharge Summary ---
Providers Discharge Summary Date: 08/01/19 Date of admission: 07/30/19 18:00 Attending physician: MITZI FISHER Primary care physician: MITZI FISHER Physical Exam - General General Appearance: Alert, Oriented x3, Cooperative, Mild distress Limitations: Altered mental status - Head Head exam: Normal inspection - Eye Eye exam: Normal appearance, PERRL, EOMI Pupils: Normal accommodation - ENT ENT exam: Normal exam, Mucous membranes dry, Normal external ear exam, Normal orophraynx, TM's normal bilaterally Ear exam: Normal external inspection. negative: External canal tenderness Nasal Exam: Normal inspection, Sinus tenderness (maxillary and frontal). negative: Discharge Mouth exam: Normal external inspection, Tongue normal Teeth exam: Normal inspection. negative: Dental caries Throat exam: Normal inspection. negative: Tonsillar erythema, Tonsillar exudate - Neck Neck exam: Normal inspection, Full ROM, Lymphadenopathy (anterior chain), Other (no neck stiffness. Negative Kernigs and Brudzinski). negative: Tenderness - Respiratory Respiratory exam: Rales. negative: Respiratory distress - Cardiovascular Cardiovascular Exam: Regular rate, Normal rhythm, Normal heart sounds - GI/Abdominal GI/Abdominal exam: Soft, Normal bowel sounds. negative: Tenderness - Rectal Rectal exam: Deferred - exam: Deferred - Extremities Extremities exam: Normal inspection, Full ROM, Normal capillary refill. negative: Tenderness - Back Back exam: Reports: Normal inspection, Full ROM. Denies: Muscle spasm, Rash noted, Tenderness - Neurological Neurological exam: Alert, CN II-XII intact, Normal gait, Oriented X3, Other - Psychiatric Psychiatric exam: Anxious, Normal affect - Skin Skin exam: Dry, Intact, Normal color, Warm Hospitalization - Hospitalization Admission Diagnosis: acute exacerbation of copd w hypoxia, confusion, weakness, pneumonia - Problem List/Discharge Diagnosis (1) Pneumonia Status: Acute Discharge Diagnosis: Pneumonia type: due to unspecified organism Laterality: right Lung location: middle lobe of lung Qualified Code(s): J18.9 - Pneumonia, unspecified organism Base Code: J18.9 - PNEUMONIA, UNSPECIFIED ORGANISM Comment: 08/01/19 - Is feeling a little better today, not as short of breath, cough is becoming more productive - Appetite poor, no nausea. NS at 100ml/hr for hydration - Rocephin 1gm QD, Azithromycin 500mg QD - O2 to keep SPO2 88-92% - Duo neb Q6hr PRN, Albuterol Q4hr PRN - Solumedrol 125mg QD (2) COPD with acute exacerbation Status: Acute Base Code: J44.1 - CHRONIC OBSTRUCTIVE PULMONARY DISEASE W (ACUTE) EXACERBATION Comment: 08/01/19 - Rocephin 1gm QD, Azithromycin 500mg QD - O2 to keep SPO2 88-92% - Duo neb Q6hr PRN, Albuterol Q4hr PRN - Solumedrol 125mg QD (3) Confusion Status: Acute Base Code: R41.0 - DISORIENTATION, UNSPECIFIED Comment: 08/01/19 - Has resolved, may have been due to acute illness and anxiety - Urine culture pending - CT head negative (4) Neutropenia Status: Acute Base Code: D70.9 - NEUTROPENIA, UNSPECIFIED Comment: 08/01/19 - WBC 2.7--> 1.5 - Neupogen weekly (5) Hypoxia Status: Acute Base Code: R09.02 - HYPOXEMIA Comment: 08/01/19 - Oxygen supplementation - Treating cause (6) Acute non-recurrent pansinusitis Status: Acute Base Code: J01.40 - ACUTE PANSINUSITIS, UNSPECIFIED Comment: 08/01/19 - Rocephin 1g QD to cover - Will discharge home on Augmentin (7) Anxiety Status: Acute Base Code: F41.9 - ANXIETY DISORDER, UNSPECIFIED Comment: 08/01/19 - Xanax 0.25mg Q8hr PRN (8) Migraines Status: Acute Discharge Diagnosis: Migraine type: without aura Intractability: not intractable Base Code: G43.909 - MIGRAINE, UNSP, NOT INTRACTABLE, WITHOUT STATUS MIGRAINOSUS Comment: 08/01/19 - No neurological findings or fever - Likely triggered by acute illness, sinustis, anxiety - [place] and [place] unsuccessful - Imitrex 6mg sub Q (9) Full code status Status: Acute Base Code: Z78.9 - OTHER SPECIFIED HEALTH STATUS Comment: 08/01/19 (10) DVT prophylaxis Status: Acute Base Code: [id number] - Comment: 08/01/19- lovenox 40 daily - Hospitalization Course Disposition: Against Medical Advice Procedures: Imaging and X-Rays 07/30/19 12:24 CHEST 2 VIEWS [RAD] Stat HEAD WO CONTRAST [CT] Stat 07/30/19 16:02 CHEST CTA w contrast [CTA] Stat Cardiology Procedures 07/30/19 12:24 [employer] Teacher NOW EKG NOW Abnormal Labs: Abnormal Lab Results 07/30/19 07/30/19 07/30/19 Range/Units 12:00 12:00 12:00 WBC 2.7 L (4.2-12.2) K/uL MCV 97.8 H (81-97) fl Monocytes 21.0 H (0-9) % ESR 73 H (0-30) mm/hr D-Dimer (0-0.59) mg/L FEU Random Glucose 178 H (74-109) mg/dL Total Bilirubin < 0.20 L (0.2-1.0) mg/dL Alkaline Phosphatase 108 H (35-104) U/L Albumin 3.9 L (4.0-5.0) g/dL Urine Protein (NEGATIVE) Urine Ketones (NEGATIVE) 07/30/19 07/30/19 07/31/19 Range/Units 12:00 15:24 06:45 WBC 1.5 L (4.2-12.2) K/uL MCV (81-97) fl Monocytes 22.0 H (0-9) % ESR (0-30) mm/hr D-Dimer 0.62 H (0-0.59) mg/L FEU Random Glucose (74-109) mg/dL Total Bilirubin (0.2-1.0) mg/dL Alkaline Phosphatase (35-104) U/L Albumin (4.0-5.0) g/dL Urine Protein Trace H (NEGATIVE) Urine Ketones Trace H (NEGATIVE) Condition at Discharge: (1) Good Discharge Medications - Discharge Medications Home Medications: Ambulatory Orders Abatacept/Maltose [Orencia] 1,000 mg IV Q4WEEK vial 10/23/18 [Last Taken 1 Day Ago ~07/29/19] Filgrastim [Neupogen] 1 syringe IJ QWEEK 30 Days #4 syringe 10/23/18 [Last Taken 1 Day Ago ~07/29/19] Pregabalin [Lyrica] 100 mg PO TID 90 Days #270 cap 10/23/18 [Last Taken 1 Day Ago ~07/29/19] Leflunomide 10 mg PO DAILY 90 Days #90 tab 01/19/19 [Last Taken 1 Day Ago ~07/29/19] Hydrocodone/Acetaminophen [Hydrocodone/Acetaminophen 7.5mg/325mg] 1 tab PO Q6H PRN 04/12/19 [Last Taken 2 Days Ago ~07/28/19] Discharge Plan - Discharge Instructions Quality Measures - Quality Measures Quality Measures: Documentation of Current Medications in Medical Record, Screening for High Blood Pressure and F/U Documented - Current Medications Quality Measure: Measure #130: Documentation of Current Medications Documentation of Current Medications: <Current Medications Documented/Reviewed> [G8427] - Blood Pressure Screening Quality Measure: Screening for High Blood Pressure and Follow-Up Documented Does Patient Have Any of the Following: No Blood Pressure Classification: Normal BP Reading Systolic Measurement: 100 Diastolic Measurement: 53 Screening for High Blood Pressure: < Normal BP, F/U Not Required > [G8783] - Elder Abuse Suspicion Index EASI Reference Information: Luisa MCCRARY, Alyson C, Sherrill D, Al Winn.Development and validation of a tool to assist physicians identification of elder abuse: The Elder Abuse Suspicion Index (EASI ). Journal of Elder Abuse and Neglect, 2008; 20 (3): 276-300.
== END 2019-08-01 18:15 | disposition left against medical advice (07) | DRG 194 ==
LOC: ER 11:45 → MEDSURG 18:00
PROVIDERS: ADMIT Internal Medicine; ATTEND Internal Medicine
DX: J18.9 Pneumonia, unspecified organism (principal); J44.1 Chronic obstructive pulmonary disease with (acute) exacerbation; R41.0 Disorientation, unspecified; D70.9 Neutropenia, unspecified; R09.02 Hypoxemia; J01.40 Acute pansinusitis, unspecified; F41.9 Anxiety disorder, unspecified; G43.909 Migraine, unspecified, not intractable, without status migrainosus; R05 Cough; R53.1 Weakness; E05.00 Thyrotoxicosis with diffuse goiter without thyrotoxic crisis or storm; M06.9 Rheumatoid arthritis, unspecified; D64.9 Anemia, unspecified; M79.7 Fibromyalgia; F17.210 Nicotine dependence, cigarettes, uncomplicated; Z90.2 Acquired absence of lung [part of]; Z87.19 Personal history of other diseases of the digestive system; Z86.73 Personal history of transient ischemic attack (TIA), and cerebral infarction without residual deficits; I95.9 Hypotension, unspecified; J43.9 Emphysema, unspecified
CPT/HCPCS: 70450; 71046; 71275; 80053; 80305; 81001; 82140; 85027; 85379; 85651; 93005; 93010; 94640; 96374; 96375; 99223; 99233; 99285; J1200; J1650; J1885; J2765; J2930; J3030; J7030